=== PATIENT | male | born 1945 | race Caucasian/White ===

== ENCOUNTER → 2020-02-05 | Outpatient (CLI) | payer MEDICARE ==
--- NOTE | 2020-02-05 09:43 | CT ---
EXAMINATION TYPE: CT abdomen pelvis wo con DATE OF EXAM: 02/05/2020 COMPARISON: None HISTORY: 74 year-old male R31.0, gross hematuria CT DLP: 1000.7 mGycm. Automated exposure control for dose reduction was used. TECHNIQUE: Contiguous axial scanning of the abdomen and pelvis without IV contrast. Coronal and sagit pao reconstructions performed. FINDINGS: Median sternotomy wires. Heart upper limits of normal in size without pericardial effusion. Lung base s clear without pleural effusion. Scattered mild atherosclerotic calcifications lower thoracic aorta. Tiny hiatal hernia. Nonspecific 1.1 cm hypodensity peripheral right hepatic dome, too small for accurate CT characterizat ion, probable cyst. Cholecystectomy clips are present. Adrenal glands and pancreas show no gross abnormality by noncontrast CT. Multiple calcific granulomas within the spleen. The kidneys show lobulated contours. Underlying hypodense lesion in the left kidney measuring 2.1 cm at the midpole, 2.1 cm exophytic from the lateral upper pole, and 1.1 cm from the posterolateral marlon ical upper pole. The larger of these are suggestive of cyst. Smaller lesion is too small for accurate CT characterization but also likely represents a cyst. A focal lobulation along the anterior midpole of the right kidney measuring 2.6 cm, axial image 56, i s noted. Difficult to exclude a soft tissue mass versus lobulation in the renal contour. No nephrolithiasis or hydronephrosis. Moderate vascular calcifications throughout the abdominal aorta and common iliac arteries. There is f usiform infrarenal AAA measuring 4.8 cm for which appropriate follow-up is recommended. No dilated small bowel, free fluid, or free air. Normal appendix. Mild scattered stool. Scattered col onic diverticulosis, extensive within the sigmoid colon. No pericolonic inflammatory change. Mild circumferential bladder wall thickening. Bladder is partially collapsed but a 2.2 cm mural based soft tissue lesion is suggested along the right lateral bladder wall, axial image 127 and coronal im age 63. Sagittal image 59. Prostate gland measures 5.1 cm wide. No abnormal fluid collection in the p cathi. Prominent but not enlarged right inguinal lymph node measuring 1.2 cm short axis. Bones: Left L5 hemisacralization. Degenerated extra convex scoliosis of the lumbar spine. [facility] within the lower thoracic spine. IMPRESSION: 1. Suggestion of a 2.2 cm mural based mass along the right lateral bladder wall. Urothelial neoplasm should be excluded. 2. Hypodense lesions within the left kidney (probable cysts measuring up to 2.1 cm) and a focal roun ded contour of the right kidney that could represent a cortical lobulation or underlying 2.6 cm mass. Consider a contrast enhanced study to clarify. 3. No nephrolithiasis or hydronephrosis. 4. Tiny hiatal hernia, multiple old granulomas within the spleen, a 4.8 cm infrarenal AAA (for which appropriate follow-up is recommended), and generalized colonic diverticulosis greatest in the sigmoi d colon.
== END | disposition home or self-care (01) ==
LOC: RADCTMAIN 07:25
PROVIDERS: ATTEND Urology
DX: N28.89 Other specified disorders of kidney and ureter (principal); K44.9 Diaphragmatic hernia without obstruction or gangrene; I71.4 Abdominal aortic aneurysm, without rupture; K57.30 Diverticulosis of large intestine without perforation or abscess without bleeding; L92.9 Granulomatous disorder of the skin and subcutaneous tissue, unspecified; Z88.6 Allergy status to analgesic agent
CPT/HCPCS: 36415; 74176; 82565; 84520

== ENCOUNTER → 2020-02-16 | Outpatient (CLI) | payer MEDICARE ==
[2020-02-16 11:51] LABS: Basophils % (A) 0 %; Eosinophils # (A) 0.3 k/uL (0-0.7); Eosinophils % (A) 3 %; HCT 30.9 % (39.0-53.0); HGB 10.3 gm/dL (13.0-17.5); Lymphocytes # (A) 2.7 k/uL (1.0-4.8); Lymphocytes % (A) 32 %; MCH 32.8 pg (25.0-35.0); MCHC 33.4 g/dL (31.0-37.0); MCV 98.3 fL (80.0-100.0); Monocytes # (A) 0.5 k/uL (0-1.0); Monocytes % (A) 6 %; Neutrophils # (A) 4.7 k/uL (1.3-7.7); Neutrophils % (A) 56 %; Platelet Count 210 k/uL (150-450); RBC 3.14 m/uL (4.30-5.90); RDW 14.5 % (11.5-15.5); WBC 8.4 k/uL (3.8-10.6)
[2020-02-16 12:22] LABS: Calcium 8.7 mg/dL (8.4-10.2); Potassium 5.4 mmol/L (3.5-5.1)
== END | disposition home or self-care (01) ==
LOC: LABPAT 09:49
PROVIDERS: ATTEND Urology
DX: Z01.818 Encounter for other preprocedural examination (principal); C67.9 Malignant neoplasm of bladder, unspecified; E11.9 Type 2 diabetes mellitus without complications
CPT/HCPCS: 36415; 80048; 85025

== ENCOUNTER 2020-02-18 11:21 | Day surgery (SDC) | payer MEDICARE ==
[2020-02-16 14:37] VITALS: BMI 31.4
--- NOTE | 2020-02-17 21:14 | P.HPIHPCON ---
History of Present Illness H&P Date: 02/17/20 Mr Mak is a 74 yo male with hx of Gross hematuria, he underwent an office cystoscopy that showed two large bladder tumor. Discussed with him given the finding on CT I recommend he proceed with TURBT, discussed risk of bleeding, infection and bladder perforation. Discussed with him his CT was non-contrast and will need to do bilateral RPG to r/o upper tract pathology. He understood all risks and agreed to proceed with TURBT and bilateral RPG Consent for Procedure: I have explained the operation/procedure to the patient, including the risks, benefits, side effects, alternative therapies (including not receiving the proposed treatment or service), the likelihood of the patient achieving his/her goals, and potential recuperation problems for the procedure/sedation/analgesia, as well as any blood products, if indicated. I also explained to the patient the risks, benefits and side effects of the alternatives, as well as the risks related to not receiving the proposed procedure, care, treatment, or services. - Constitutional Constitutional: Denies chills, Denies fever - Gastrointestinal Gastrointestinal: Denies abdominal pain, Denies diarrhea, Denies nausea, Denies vomiting - Genitourinary (Male) Genitourinary: Reports hematuria Past Medical History Past Medical History: Coronary Artery Disease (CAD), Cancer, Diabetes Mellitus, GERD/Reflux, Hyperlipidemia, Hypertension, Myocardial Infarction (OR) Additional Past Medical History / Comment(s): OR X3, states has bladder tumor, hx of basal cell skin CA Last Myocardial Infarction Date:: 1992 History of Any Multi-Drug Resistant Organisms: None Reported Past Surgical History: Cholecystectomy, Coronary Bypass/CABG, Heart Catheterization, Orthopedic Surgery Additional Past Surgical History / Comment(s): cabg x3 1993, janel elbow nerve sx, rt rotator cuff, skin CA removed from back Past Anesthesia/Blood Transfusion Reactions: No Reported Reaction Smoking Status: Former smoker Medications and Allergies Home Medications Medication Instructions Recorded Confirmed Type Aspirin EC [Ecotrin Low Dose] 81 mg PO DAILY 02/16/20 02/16/20 History C,E,Zinc,Copper 11/Vugrl7r/Lut 1 each PO DAILY 02/16/20 02/16/20 History [Ocuvite Adult 50 Plus Softgel] Carvedilol [Coreg] 12.5 mg PO BID 02/16/20 02/16/20 History Cholecalciferol [Vitamin D3 (25 1,000 unit PO DAILY 02/16/20 02/16/20 History Mcg = 1000 Iu)] Cinnamon Bark [Cinnamon] 500 mg PO DAILY 02/16/20 02/16/20 History Ezetimibe [Zetia] 10 mg PO DAILY 02/16/20 02/16/20 History Folic Acid 1 mg PO DAILY 02/16/20 02/16/20 History Garlic 1 each PO DAILY 02/16/20 02/16/20 History Ginseng 100 mg PO DAILY 02/16/20 02/16/20 History Insulin Glargine [Lantus] 25 unit SQ HS 02/16/20 02/16/20 History Insulin Lispro Protamin/Lispro 30 unit SQ 1500 02/16/20 02/16/20 History [humaLOG Mix 75-25 Kwikpen] Insulin Lispro Protamin/Lispro 40 unit SQ QAM 02/16/20 02/16/20 History [humaLOG Mix 75-25 Kwikpen] Niacin [Niaspan] 1,000 mg PO DAILY 02/16/20 02/16/20 History Omeprazole 40 mg PO DAILY 02/16/20 02/16/20 History Pioglitazone [Actos] 45 mg PO DAILY 02/16/20 02/16/20 History Terazosin [Hytrin] 5 mg PO HS 02/16/20 02/16/20 History Ubidecarenone [Co Q-10] 100 mg PO DAILY 02/16/20 02/16/20 History Vitamin B Complex 1 each PO DAILY 02/16/20 02/16/20 History metFORMIN HCL [Glucophage] 1,000 mg PO BID 02/16/20 02/16/20 History Allergies Allergy/AdvReac Type Severity Reaction Status Date / Time No Known Allergies Allergy Verified 02/16/20 14:26 Surgical - Exam - General well developed, well nourished, no distress, no pain - ENT normal nares, normal mucosa - Respiratory normal expansion, normal respiratory effort - Psychiatric oriented to time, oriented to person, oriented to place Assessment and Plan Assessment: 74 yo male with hx of bladder tumor _ OR for TURBT and bilateral RPG
[~2020-02-18 11:21] MED LIST: ceFAZolin 3 GM in SODIUM CHLORIDE 0.9% 100 ML IVPB PRN
[2020-02-18] MEDS ORDERED: ONDANSETRON 4 MG/2 ML VIAL ONE (11:47)
[2020-02-18 12:06] LABS: Glucose,Whole Blood 106 mg/dL (75-99)
[2020-02-18] MEDS: LACTATED RINGERS 1,000 ML IV ONE (12:07)
[2020-02-18] MEDS ORDERED: ONDANSETRON 4 MG/2 ML VIAL IVP ONE (12:07)
[2020-02-18] MEDS ORDERED: LIDOCAINE 1% (10MG/ML) FOR IV START INTRADERMA ONE (12:07)
[2020-02-18] MEDS ORDERED: DEXAMETHASONE SOD PHOSPHATE 4 MG/ML 1 ML VIAL IV ONE (12:08)
[2020-02-18] MEDS ORDERED: PHENYLEPHRINE 10 MG/ML VIAL ONE (12:35)
[2020-02-18] MEDS ORDERED: PROPOFOL 10 MG/ML 20 ML VIAL IV ONE (12:35)
[2020-02-18] MEDS ORDERED: MIDAZOLAM 2 MG/2 ML VIAL ONE (12:35)
[2020-02-18] MEDS ORDERED: SUCCINYLCHOLINE CHLORIDE 100 MG/5 ML SYR IV ONE (12:35)
[2020-02-18] MEDS ORDERED: fentaNYL (PF) 50 MCG/ML 2 ML AMP ONE ×2 (12:35)
[2020-02-18] MEDS ORDERED: ROCURONIUM 10 MG/ML (10 ML VIAL) IV ONE (12:35)
[2020-02-18] MEDS ORDERED: NEOSTIGMINE 1 MG/ML 10 ML VIAL ONE (12:35)
[2020-02-18] MEDS ORDERED: GLYCOPYRROLATE 0.2 MG/ML 2 ML VIAL ONE (12:35)
[2020-02-18] MEDS ORDERED: IOPAMIDOL-370 50ML BTL MISCELLANE ONE (14:03)
[2020-02-18] MEDS ORDERED: LACTATED RINGERS 1,000 ML IV ONE (14:24)
--- NOTE | 2020-02-18 14:35 | P.OP ---
Date of Procedure: 02/18/20 Preoperative Diagnosis: Bladder tumor Postoperative Diagnosis: Bladder tumor Procedure(s) Performed: TURBT, bilateral retrograde pyelogram, right ureteroscopy, and ureteral balloon dilation Implants: none Anesthesia: YANDELA Surgeon: Gama Wetzel Estimated Blood Loss (ml): 10 Pathology: other (Right ureteral cytology, bladder tumor) Condition: stable Disposition: PACU Indications for Procedure: Mr Mak is a 74 yo male with hx of Gross hematuria, he underwent an office cystoscopy that showed two large bladder tumor. Discussed with him given the finding on CT I recommend he proceed with TURBT, discussed risk of bleeding, infection and bladder perforation. Discussed with him his CT was non-contrast and will need to do bilateral RPG to r/o upper tract pathology. He understood all risks and agreed to proceed with TURBT and bilateral R Operative Findings: Large bladder tumor along the right lateral wall, measured approximately 6 cm, additional 1 cm satellite tumor and anterior bladder wall, and retrograde pyelogram on the right side there was an area of narrowing in the mid ureter with proximal dilation Description of Procedure: Patient was brought to the operating room, general anesthesia was induced. He was prepped and draped so fashion a placement dorsal lithotomy position. A cystoscopy fitted with a 22-Ethiopian sheath was inserted per urethra, cystoscopy was performed which showed a large bladder tumor along the lateral wall on the right side, measured approximately 6 cm, an additional satellite lesion along the anterior bladder wall. No additional lesions were visualized. At this time the left ureter was intubated 6-Ethiopian open-ended catheter, retrograde pyelogram was performed which showed no filling defect or hydronephrosis. Attention was then carried to the right side which was intubated with a 6-Ethiopian open-ended catheter, retrograde pyelogram was performed which showed an area of narrowing along the mid ureter with proximal dilation, no additional filling defect or hydronephrosis was appreciated. Of note the UVJ was narrowed, thus using a ureteral balloon dilator the area was dilated under fluoroscopy. Next the balloon dilator was removed and a semirigid ureteroscope was inserted per urethra, the ureteroscope was advanced up the right ureter and the scope was advanced all the way up to the distal portion of the proximal ureter past the area of narrowing , ureteroscopy of the narrowed area demonstrated no abnormality, of note there was diffuse erythema along the distal and mid ureter, right ureteral cytology was obtained, to role out CIS At this time the ureteroscope was withdrawn, and resectoscope fitted with a 25-Ethiopian sheath was inserted per urethra, the tumor along the lateral wall was resected down down to muscle. The area of resection was thoroughly fulgurated. An additional satellite lesion was seen along the anterior bladder wall that was resected down to muscle and thoroughly fulgurated. Repeat cystoscopy showed no additional tumors or evidence of bleeding. at this time the resectoscope was withdrawn and a 20-Ethiopian catheter was inserted per urethra, with return of clear urine. The bladder was irrigated without difficulties. The tumor specimen was sent to pathology. The patient tolerated the procedure well was taken to PACU in stable condition
[2020-02-18 14:45] VITALS: RESP 16; TEMP 98
--- NOTE | 2020-02-18 14:47 | FL ---
EXAMINATION TYPE: FL urography retrograde DATE OF EXAM: 02/18/2020 FLUOROSCOPY Fluoroscopy time of 1 minute 8 seconds was used during bilateral cystoscopy . 2 image/s document/s t he procedure.
[2020-02-18] MEDS ORDERED: traMADol 50 MG TAB ONE (15:50)
[2020-02-18] MEDS ORDERED: traMADol 50 MG TAB PO ONE (15:51)
[2020-02-18 16:16] VITALS: BP 165/74; PULSE 57
== END 2020-02-18 16:40 | disposition home or self-care (01) ==
LOC: OR 11:21
PROVIDERS: ATTEND Urology
DX: C67.2 Malignant neoplasm of lateral wall of bladder (principal); C67.3 Malignant neoplasm of anterior wall of bladder; N13.5 Crossing vessel and stricture of ureter without hydronephrosis; E11.9 Type 2 diabetes mellitus without complications; I10 Essential (primary) hypertension; I25.2 Old myocardial infarction; Z88.8 Allergy status to other drugs, medicaments and biological substances; Z95.1 Presence of aortocoronary bypass graft
CPT/HCPCS: 88108; 88305; 88307; 74420; 52240; 52344; C1758 ×2; C1769; J2250; J1100; J2370; J2710; J0690; J2405; J3010; J0330; J2704; Q9967

== ENCOUNTER 2020-02-19 16:04 | Inpatient (IN) | payer MEDICARE ==
[2020-02-19] MEDS ORDERED: SODIUM CHLORIDE 0.9% 1,000 ML IV STA (17:03)
[2020-02-19] MEDS ORDERED: ONDANSETRON 4 MG/2 ML VIAL IVP STA (17:03)
[2020-02-19 17:45] LABS: INR 1.1 (<1.2); Partial Thromboplastin Time 22.4 sec (22.0-30.0); Prothrombin Time 11.3 sec (9.0-12.0)
[2020-02-19 17:53] LABS: Albumin 3.6 g/dL (3.5-5.0); Basophils % (A) 0 %; Calcium 7.9 mg/dL (8.4-10.2); Eosinophils # (A) 0.1 k/uL (0-0.7); Eosinophils % (A) 0 %; HCT 24.4 % (39.0-53.0); Lymphocytes # (A) 1.9 k/uL (1.0-4.8); Lymphocytes % (A) 11 %; MCH 31.8 pg (25.0-35.0); MCHC 32.5 g/dL (31.0-37.0); MCV 97.8 fL (80.0-100.0); Mean Platelet Volume 7.2; Monocytes # (A) 0.9 k/uL (0-1.0); Monocytes % (A) 6 %; Neutrophils # (A) 13.1 k/uL (1.3-7.7); Neutrophils % (A) 81 %; Platelet Count 233 k/uL (150-450); Potassium 5.6 mmol/L (3.5-5.1); RBC 2.49 m/uL (4.30-5.90); RDW 14.6 % (11.5-15.5); Total Bilirubin 0.3 mg/dL (0.2-1.3); Total Protein 6.2 g/dL (6.3-8.2); WBC 16.2 k/uL (3.8-10.6)
[2020-02-19 17:55] LABS: HGB 7.9 gm/dL (13.0-17.5)
--- NOTE | 2020-02-19 18:21 | XR ---
EXAMINATION TYPE: XR chest 2V DATE OF EXAM: 02/19/2020 COMPARISON: NONE HISTORY: Dizziness and vomiting. TECHNIQUE: Frontal and lateral views of the chest are obtained. FINDINGS: There is no focal air space opacity, pleural effusion, or pneumothorax seen. The cardiac silhouette size is enlarged. CABG noted. The osseous structures are intact. IMPRESSION: No acute cardiopulmonary process. Cardiomegaly.
--- NOTE | 2020-02-19 20:09 | CT ---
EXAMINATION TYPE: CT abdomen pelvis wo con DATE OF EXAM: 02/19/2020 COMPARISON: 02/04/2010. HISTORY: History of bladder cancer, renal failure, recent TURBT. CT DLP: 988.9 mGycm Automated exposure control for dose reduction was used. TECHNIQUE: Helical acquisition of images was performed from the lung bases through the pelvis. FINDINGS: LUNG BASES: No significant abnormality is appreciated. LIVER/GB: No significant abnormality is appreciated. PANCREAS: No significant abnormality is seen. SPLEEN: Stable scattered innumerable small benign splenic calcifications, in keeping with prior granu lomatous disease. ADRENALS: No significant abnormality is seen. KIDNEYS: Mild right hydronephrosis without obstructing calculus seen. There is a 3 mm nonobstructing right renal calculus. No left hydronephrosis or nephrolithiasis. Multiple simple appearing left renal cyst, measuring up to 1.7 cm. FREE AIR: No free air is visualized RETROPERITONEAL ADENOPATHY: None visualized REPRODUCTIVE ORGANS: No significant abnormality is seen URINARY BLADDER: There is moderate hyperattenuating fluid within the urinary bladder resulting in mi ld distention. Perez catheter is in place. There is small amount of urinary bladder and. PELVIC ADENOPATHY: None visualized. OSSEOUS STRUCTURES: No significant abnormality is seen. BOWEL: No significant abnormality is seen. OTHER: Moderate to advanced atherosclerotic disease with stable 4.8 cm abdominal aortic aneurysm. IMPRESSION: INTERVAL MODERATE AMOUNT OF HYPERATTENUATING FLUID WITHIN THE URINARY BLADDER, CONSISTENT WITH HEMATO MA IN SETTING OF REPORTED RECENT URINARY BLADDER SURGERY. MODERATE RIGHT HYDRONEPHROSIS. CHRONIC FINDINGS ABOVE.
--- NOTE | 2020-02-19 21:04 | ED ---
General Adult HPI - General Chief complaint: Nausea/Vomiting/Diarrhea Stated complaint: Dehydration, Vomiting Time Seen by Provider: 02/19/20 16:10 Source: patient Mode of arrival: wheelchair Limitations: no limitations - History of Present Illness Initial comments: Patient is a 74-year-old male with past medical history of possible bladder cancer who presents emergency Department with reported nausea, vomiting. Patient had a cystoscopy with Dr. Wetzel yesterday to hematuria. It was found that the patient had 2 large bladder masses which were biopsied. Patient was sent home with a Dutton catheter. Reports that he had some blood in his Dutton last night. This morning he began developing suprapubic abdominal pain. He has been unable to eat and drink since before his surgery. Anything he eats he vomits back up. Denies bloody emesis. No fevers or chills. Denies changes in his bowel habits. He did see Dr. Wetzel in office today and his Dutton was flushed. Dr. Lincoln Jensen requested that if he did not feel better that he go back into the emergency room. Patient denies any abdominal pain this time. No fevers or chills. Denies any sick contacts or similar symptoms. No other alleviating, precipitating or modifying factors - Related Data Home Medications Medication Instructions Recorded Confirmed C,E,Zinc,Copper 11/Oujaa3k/Lut 1 cap PO DAILY 02/16/20 02/19/20 [Ocuvite Adult 50 Plus Softgel] Carvedilol [Coreg] 12.5 mg PO BID 02/16/20 02/19/20 Cholecalciferol [Vitamin D3 (25 1,000 unit PO DAILY 02/16/20 02/19/20 Mcg = 1000 Iu)] Cinnamon Bark [Cinnamon] 500 mg PO DAILY 02/16/20 02/19/20 Ezetimibe [Zetia] 10 mg PO DAILY 02/16/20 02/19/20 Garlic 1 tab PO DAILY 02/16/20 02/19/20 Ginseng 100 mg PO DAILY 02/16/20 02/19/20 Omeprazole 40 mg PO DAILY 02/16/20 02/19/20 Pioglitazone [Actos] 45 mg PO DAILY 02/16/20 02/19/20 Terazosin [Hytrin] 5 mg PO HS 02/16/20 02/19/20 Ubidecarenone [Co Q-10] 100 mg PO DAILY 02/16/20 02/19/20 Vitamin B Complex 1 tab PO DAILY 02/16/20 02/19/20 Aspirin 325 mg PO DIRECTED 02/19/20 02/19/20 Carboxymethylcellulose Sodium 1 drop BOTH EYES QID PRN 02/19/20 02/19/20 [Refresh Tears] Folic Acid 0.8 mg PO BID 02/19/20 02/19/20 Niacin [Slo-Niacin] 1,000 mg PO BID 02/19/20 02/19/20 Nitroglycerin Sl Tabs [Nitrostat] 0.4 mg SUBLINGUAL Q5M PRN 02/19/20 02/19/20 Simvastatin [Zocor] 40 mg PO HS 02/19/20 02/19/20 ramipriL [Ramipril] 10 mg PO BID 02/19/20 02/19/20 Previous Rx's Medication Instructions Recorded Cephalexin [Keflex] 500 mg PO Q8HR #15 cap 02/18/20 traMADol HCL [Ultram] 50 mg PO Q6HR PRN 3 Days #6 tab 02/18/20 MDD 8 Albuterol Inhaler [Ventolin Hfa 2 puff INHALATION RT-QID PRN #1 02/22/20 Inhaler] inhaler Fluticasone/Salmeterol [Advair 1 inhalation PO BID #1 inhaler 02/22/20 250-50 Diskus] Insulin Glargine [Lantus] 30 unit SQ HS #0 02/22/20 Tiotropium [place] [Spiriva] 1 cap INHALATION DAILY #1 device 02/22/20 Allergies Allergy/AdvReac Type Severity Reaction Status Date / Time No Known Allergies Allergy Verified 02/19/20 18:41 Review of Systems ROS Statement: Those systems with pertinent positive or pertinent negative responses have been documented in the HPI. ROS Other: All systems not noted in ROS Statement are negative. Past Medical History Past Medical History: Cancer Additional Past Medical History / Comment(s): Bladder CA Additional Past Surgical History / Comment(s): TURPT Smoking Status: Former smoker Past Alcohol Use History: Occasional Past Drug Use History: None Reported General Exam Limitations: no limitations General appearance: alert, in no apparent distress Head exam: Present: atraumatic, normocephalic, normal inspection Eye exam: Present: normal appearance, PERRL, EOMI. Absent: scleral icterus, conjunctival injection, periorbital swelling ENT exam: Present: normal exam, mucous membranes moist Neck exam: Present: normal inspection. Absent: tenderness, meningismus, lymphadenopathy Respiratory exam: Present: normal lung sounds bilaterally. Absent: respiratory distress, wheezes, rales, rhonchi, stridor Cardiovascular Exam: Present: regular rate, normal rhythm, normal heart sounds. Absent: systolic murmur, diastolic murmur, rubs, gallop, clicks GI/Abdominal exam: Present: soft, normal bowel sounds. Absent: distended, tenderness, guarding, rebound, rigid exam: Present: normal inspection, other (dutton bag draining dark blood) Extremities exam: Present: normal inspection, full ROM, normal capillary refill. Absent: tenderness, pedal edema, joint swelling, calf tenderness Back exam: Present: normal inspection Neurological exam: Present: alert, oriented X3, CN II-XII intact Psychiatric exam: Present: normal affect, normal mood Skin exam: Present: warm, dry, intact, normal color. Absent: rash Course Vital Signs 02/19/20 02/19/20 02/19/20 16:10 18:41 19:48 Temperature 97.8 F 97.8 F Pulse Rate 82 65 70 Respiratory 81 H 20 18 Rate Blood Pressure 121/71 138/80 149/59 O2 Sat by Pulse 97 96 96 Oximetry 02/19/20 02/19/20 20:52 22:33 Temperature 98.9 F Pulse Rate 80 95 Respiratory 19 19 Rate Blood Pressure 121/77 139/60 O2 Sat by Pulse 94 L 94 L Oximetry Medical Decision Making - Medical Decision Making Upon arrival patient was placed into room 5. A thorough history and physical exam was performed. Peripheral IV is established. Laboratory studies were conducted. Bladder scan does demonstrate minimal fluid inside the bladder. Dutton is actively draining at this time gross blood. Laboratory studies revealing demonstrated a hemoglobin 7.9. This is a change from the patient's previous value of 10.3 on 11. Creatinine is also 3.4. Baseline of 1.4. I did send the patient over for a CT of his abdomen and pelvis because of this new onset kidney failure with recent surgery. It does demonstrate hematoma within the bladder and right hydronephrosis. Patient fully continues to drain appropriately. I called and discussed the case with Dr. Wetzel who agreed to consult on the patient. Spoke with Dr. Cervantes who agreed to admit the patient. She will be made nothing by mouth at midnight. The patient is type and screen and we will repeat a hemoglobin tonight. Patient remained in stable condition and was transported to the floor - Lab Data Result diagrams: 02/22/20 05:52 02/22/20 05:52 Lab Results 02/19/20 02/19/20 02/19/20 Range/Units 17:22 17:22 17:22 WBC 16.2 H (3.8-10.6) k/uL RBC 2.49 L (4.30-5.90) m/uL Hgb 7.9 L D (13.0-17.5) gm/dL Hct 24.4 L (39.0-53.0) % MCV 97.8 (80.0-100.0) fL MCH 31.8 (25.0-35.0) pg MCHC 32.5 (31.0-37.0) g/dL RDW 14.6 (11.5-15.5) % Plt Count 233 (150-450) k/uL MPV 7.2 Neutrophils % 81 % Lymphocytes % 11 % Monocytes % 6 % Eosinophils % 0 % Basophils % 0 % Neutrophils # 13.1 H (1.3-7.7) k/uL Lymphocytes # 1.9 (1.0-4.8) k/uL Monocytes # 0.9 (0-1.0) k/uL Eosinophils # 0.1 (0-0.7) k/uL Basophils # 0.0 (0-0.2) k/uL PT 11.3 (9.0-12.0) sec INR 1.1 (<1.2) APTT 22.4 (22.0-30.0) sec Sodium 134 L (137-145) mmol/L Potassium 5.6 H (3.5-5.1) mmol/L Chloride 104 (98-107) mmol/L Carbon Dioxide 20 L (22-30) mmol/L Anion Gap 10 mmol/L BUN 46 H (9-20) mg/dL Creatinine 3.43 H (0.66-1.25) mg/dL Est GFR (CKD-EPI)AfAm 19 (>60 ml/min/1.73 sqM) Est GFR (CKD-EPI)NonAf 17 (>60 ml/min/1.73 sqM) Glucose 158 H (74-99) mg/dL Plasma Lactic Acid [place] (0.7-2.0) mmol/L Calcium 7.9 L (8.4-10.2) mg/dL Total Bilirubin 0.3 (0.2-1.3) mg/dL AST 45 (17-59) U/L ALT 30 (4-49) U/L Alkaline Phosphatase 40 (38-126) U/L Total Protein 6.2 L (6.3-8.2) g/dL Albumin 3.6 (3.5-5.0) g/dL Lipase 98 (23-300) U/L Coronavirus (PCR) (Not Detectd) Blood Type Blood Type Confirm Blood Type Recheck Bld Type Recheck Status Antibody Screen Crossmatch Spec Expiration Date 02/19/20 02/19/20 02/19/20 Range/Units 17:22 17:22 17:24 WBC (3.8-10.6) k/uL RBC (4.30-5.90) m/uL Hgb (13.0-17.5) gm/dL Hct (39.0-53.0) % MCV (80.0-100.0) fL MCH (25.0-35.0) pg MCHC (31.0-37.0) g/dL RDW (11.5-15.5) % Plt Count (150-450) k/uL MPV Neutrophils % % Lymphocytes % % Monocytes % % Eosinophils % % Basophils % % Neutrophils # (1.3-7.7) k/uL Lymphocytes # (1.0-4.8) k/uL Monocytes # (0-1.0) k/uL Eosinophils # (0-0.7) k/uL Basophils # (0-0.2) k/uL PT (9.0-12.0) sec INR (<1.2) APTT (22.0-30.0) sec Sodium (137-145) mmol/L Potassium (3.5-5.1) mmol/L Chloride (98-107) mmol/L Carbon Dioxide (22-30) mmol/L Anion Gap mmol/L BUN (9-20) mg/dL Creatinine (0.66-1.25) mg/dL Est GFR (CKD-EPI)AfAm (>60 ml/min/1.73 sqM) Est GFR (CKD-EPI)NonAf (>60 ml/min/1.73 sqM) Glucose (74-99) mg/dL Plasma Lactic Acid Lawson 1.2 (0.7-2.0) mmol/L Calcium (8.4-10.2) mg/dL Total Bilirubin (0.2-1.3) mg/dL AST (17-59) U/L ALT (4-49) U/L Alkaline Phosphatase (38-126) U/L Total Protein (6.3-8.2) g/dL Albumin (3.5-5.0) g/dL Lipase (23-300) U/L Coronavirus (PCR) Not Detected (Not Detectd) Blood Type Blood Type Confirm A Positive Blood Type Recheck Bld Type Recheck Status Antibody Screen Crossmatch Spec Expiration Date 02/19/20 Range/Units 20:32 WBC (3.8-10.6) k/uL RBC (4.30-5.90) m/uL Hgb (13.0-17.5) gm/dL Hct (39.0-53.0) % MCV (80.0-100.0) fL MCH (25.0-35.0) pg MCHC (31.0-37.0) g/dL RDW (11.5-15.5) % Plt Count (150-450) k/uL MPV Neutrophils % % Lymphocytes % % Monocytes % % Eosinophils % % Basophils % % Neutrophils # (1.3-7.7) k/uL Lymphocytes # (1.0-4.8) k/uL Monocytes # (0-1.0) k/uL Eosinophils # (0-0.7) k/uL Basophils # (0-0.2) k/uL PT (9.0-12.0) sec INR (<1.2) APTT (22.0-30.0) sec Sodium (137-145) mmol/L Potassium (3.5-5.1) mmol/L Chloride (98-107) mmol/L Carbon Dioxide (22-30) mmol/L Anion Gap mmol/L BUN (9-20) mg/dL Creatinine (0.66-1.25) mg/dL Est GFR (CKD-EPI)AfAm (>60 ml/min/1.73 sqM) Est GFR (CKD-EPI)NonAf (>60 ml/min/1.73 sqM) Glucose (74-99) mg/dL Plasma Lactic Acid Lawson (0.7-2.0) mmol/L Calcium (8.4-10.2) mg/dL Total Bilirubin (0.2-1.3) mg/dL AST (17-59) U/L ALT (4-49) U/L Alkaline Phosphatase (38-126) U/L Total Protein (6.3-8.2) g/dL Albumin (3.5-5.0) g/dL Lipase (23-300) U/L Coronavirus (PCR) (Not Detectd) Blood Type A Positive Blood Type Confirm Blood Type Recheck No Previous Record Bld Type Recheck Status CABO Indicated Antibody Screen NEGATIVE Crossmatch See Detail Spec Expiration Date 02/22/20202331 Disposition Clinical Impression: Dehydration, NGOZI (acute kidney injury), Mass of urinary bladder, S/P cystoscopy, Blood loss anemia Disposition: ADMITTED IP TO THIS [facility] Condition: Good Is patient prescribed a controlled substance at d/c from ED?: No Decision to Admit Reason: Admit from EC Decision Date: 02/19/20 Decision Time: 21:10
[2020-02-19] MEDS ORDERED: NALOXONE 0.4 MG/ML 1 ML VIAL IV PRN (21:11)
[2020-02-19] MEDS ORDERED: NON FORMULARY DRUG (Carboxymethylcellulose Sodium [Refresh Tears] 15 ML Drops) BOTH EYES PRN (21:17)
[2020-02-19] MEDS: SODIUM CHLORIDE 0.9% 1,000 ML IV SCH (21:55)
[2020-02-20] MEDS: ACETAMINOPHEN TAB 325 MG TAB PO PRN (01:14)
[2020-02-20] MEDS: CEPHALEXIN 250 MG CAP PO SCH ×2 (01:23→09:42)
[2020-02-20] MEDS: SODIUM CHLORIDE 0.9% 1,000 ML IV SCH ×3 (05:22→21:12)
[2020-02-20 07:55] LABS: Basophils % (A) 0 %; Eosinophils # (A) 0.2 k/uL (0-0.7); Eosinophils % (A) 1 %; HCT 22.3 % (39.0-53.0); HGB 7.4 gm/dL (13.0-17.5); Lymphocytes # (A) 2.1 k/uL (1.0-4.8); Lymphocytes % (A) 16 %; MCH 32.9 pg (25.0-35.0); MCHC 33.2 g/dL (31.0-37.0); MCV 98.9 fL (80.0-100.0); Macrocytosis Slight; Monocytes # (A) 0.7 k/uL (0-1.0); Monocytes % (A) 5 %; Neutrophils # (A) 10.5 k/uL (1.3-7.7); Neutrophils % (A) 77 %; Platelet Count 191 k/uL (150-450); RBC 2.25 m/uL (4.30-5.90); RDW 14.4 % (11.5-15.5); WBC 13.7 k/uL (3.8-10.6)
[2020-02-20 08:05] LABS: Glucose,Whole Blood 161 mg/dL (75-99)
[2020-02-20 08:24] LABS: Calcium 7.4 mg/dL (8.4-10.2); Potassium 4.9 mmol/L (3.5-5.1)
[2020-02-20] MEDS ORDERED: NON FORMULARY DRUG (Garlic [Garlic] 1 EACH Tablet) PO SCH (09:00)
[2020-02-20] MEDS ORDERED: NON FORMULARY DRUG (Cinnamon Bark [Cinnamon] 500 MG Capsule) PO SCH (09:00)
[2020-02-20] MEDS ORDERED: NON FORMULARY DRUG (Ubidecarenone [Co Q-10] 100 MG Capsule) PO SCH (09:00)
[2020-02-20] MEDS ORDERED: NON FORMULARY DRUG (Folic Acid [Folic Acid] 0.8 MG Capsule) PO SCH (09:00)
[2020-02-20] MEDS ORDERED: NON FORMULARY DRUG (Vitamin B Complex [Vitamin B Complex] 1 EACH Capsule) PO SCH (09:00)
[2020-02-20] MEDS ORDERED: NIACIN 500 MG PO SCH (09:00)
[2020-02-20] MEDS ORDERED: GINSENG 100 MG PO SCH (09:00)
[2020-02-20 09:18] LABS: Basophils % (A) 0 %; Eosinophils # (A) 0.2 k/uL (0-0.7); Eosinophils % (A) 2 %; HCT 22.2 % (39.0-53.0); HGB 7.2 gm/dL (13.0-17.5); Lymphocytes # (A) 1.7 k/uL (1.0-4.8); Lymphocytes % (A) 13 %; MCH 32.6 pg (25.0-35.0); MCHC 32.6 g/dL (31.0-37.0); MCV 100.1 fL (80.0-100.0); Macrocytosis Slight; Mean Platelet Volume 8.2; Monocytes # (A) 0.7 k/uL (0-1.0); Monocytes % (A) 5 %; Neutrophils # (A) 10.1 k/uL (1.3-7.7); Neutrophils % (A) 78 %; Platelet Count 188 k/uL (150-450); RBC 2.22 m/uL (4.30-5.90); RDW 14.7 % (11.5-15.5); WBC 12.9 k/uL (3.8-10.6)
[2020-02-20] MEDS: carvediloL 12.5 MG TAB PO SCH ×2 (09:35→18:24)
[2020-02-20] MEDS: CHOLECALCIFEROL 1,000 UNIT TAB PO SCH (09:36)
[2020-02-20] MEDS: PANTOPRAZOLE 40 MG TABLET PO SCH (09:36)
[2020-02-20] MEDS: lisinopriL 20 MG TAB PO SCH ×2 (09:36→21:11)
[2020-02-20] MEDS: EZETIMIBE 10 MG TAB PO SCH (09:36)
[2020-02-20] MEDS: OXYBUTYNIN CHLORIDE 5 MG TAB PO SCH ×2 (09:43→21:11)
[2020-02-20 10:53] LABS: Glucose,Whole Blood 153 mg/dL (75-99)
--- NOTE | 2020-02-20 16:31 | P.HPIM ---
History of Present Illness 74-year-old male with past medical history of possible bladder cancer who presents emergency Department with reported nausea, vomiting. Patient had a cystoscopy with Dr. Wetzel 2 days ago. It was found that the patient had 2 large bladder masses which were biopsied. Patient was sent home with a Perez catheter. Reports that he had some blood in his Perez last night. This morning he began developing suprapubic abdominal pain. He has been unable to eat and drink since before his surgery. Anything he eats he vomits back up. Denies bloody emesis. No fevers or chills. Denies changes in his bowel habits. He did see Dr. Wetzel in office today and his Perez was flushed. Patient appeared to have urinary retention because of which he called the urologist who asked him to come to the hospital patient denied any fever chills patient had a CT of the abdomen showed right-sided hydronephrosis. Patient's Perez catheter was flushed after which started working patient creatinine although went up to around 2.7 baseline appears to be around 1.49.. Patient denies any abdominal pain this time. No fevers or chills. Denies any sick contacts or similar symptoms. Review of Systems REVIEW OF SYSTEMS: CONSTITUTIONAL: No fever, no malaise, no fatigue. HEENT: No recent visual problems or hearing problems. Denied any sore throat. CARDIOVASCULAR: No chest pain, orthopnea, PND, no palpitations, no syncope. PULMONARY: No shortness of breath, no cough, no hemoptysis. GASTROINTESTINAL: No diarrhea, no nausea, no vomiting, no abdominal pain. NEUROLOGICAL: No headaches, no weakness, no numbness. HEMATOLOGICAL: Denies any bleeding or petechiae. GENITOURINARY: As mentioned in HPI MUSCULOSKELETAL/RHEUMATOLOGICAL: Denies any joint pain, swelling, or any muscle pain. ENDOCRINE: Denies any polyuria or polydipsia. The rest of the 14-point review of systems is negative. Past Medical History Past Medical History: Cancer Additional Past Medical History / Comment(s): Bladder CA History of Any Multi-Drug Resistant Organisms: None Reported Additional Past Surgical History / Comment(s): TURPT Smoking Status: Former smoker Past Alcohol Use History: Occasional Past Drug Use History: None Reported Medications and Allergies Home Medications Medication Instructions Recorded Confirmed Type C,E,Zinc,Copper 11/Dfcbf7d/Lut 1 cap PO DAILY 02/16/20 02/19/20 History [Ocuvite Adult 50 Plus Softgel] Carvedilol [Coreg] 12.5 mg PO BID 02/16/20 02/19/20 History Cholecalciferol [Vitamin D3 (25 1,000 unit PO DAILY 02/16/20 02/19/20 History Mcg = 1000 Iu)] Cinnamon Bark [Cinnamon] 500 mg PO DAILY 02/16/20 02/19/20 History Ezetimibe [Zetia] 10 mg PO DAILY 02/16/20 02/19/20 History Garlic 1 tab PO DAILY 02/16/20 02/19/20 History Ginseng 100 mg PO DAILY 02/16/20 02/19/20 History Insulin Glargine [Lantus] 25 unit SQ HS 02/16/20 02/19/20 History Omeprazole 40 mg PO DAILY 02/16/20 02/19/20 History Pioglitazone [Actos] 45 mg PO DAILY 02/16/20 02/19/20 History Terazosin [Hytrin] 5 mg PO HS 02/16/20 02/19/20 History Ubidecarenone [Co Q-10] 100 mg PO DAILY 02/16/20 02/19/20 History Vitamin B Complex 1 tab PO DAILY 02/16/20 02/19/20 History metFORMIN HCL [Glucophage] 1,000 mg PO BID 02/16/20 02/19/20 History Cephalexin [Keflex] 500 mg PO Q8HR #15 cap 02/18/20 02/19/20 Rx traMADol HCL [Ultram] 50 mg PO Q6HR PRN 3 Days #6 tab 02/18/20 02/19/20 Rx MDD 8 Aspirin 325 mg PO DIRECTED 02/19/20 02/19/20 History Carboxymethylcellulose Sodium 1 drop BOTH EYES QID PRN 02/19/20 02/19/20 History [Refresh Tears] Folic Acid 0.8 mg PO BID 02/19/20 02/19/20 History Insulin NPL/Insulin Lispro 30 unit SQ DAILY@1800 02/19/20 02/19/20 History [humaLOG MIX 75-25 VIAL] Insulin NPL/Insulin Lispro 40 unit SQ QAM 02/19/20 02/19/20 History [humaLOG MIX 75-25 VIAL] Niacin [Slo-Niacin] 1,000 mg PO BID 02/19/20 02/19/20 History Nitroglycerin Sl Tabs [Nitrostat] 0.4 mg SUBLINGUAL Q5M PRN 02/19/20 02/19/20 History Simvastatin [Zocor] 40 mg PO HS 02/19/20 02/19/20 History ramipriL [Ramipril] 10 mg PO BID 02/19/20 02/19/20 History Allergies Allergy/AdvReac Type Severity Reaction Status Date / Time No Known Allergies Allergy Verified 02/19/20 18:41 Physical Exam Vitals: Vital Signs Temp Pulse Pulse Resp BP BP Pulse Ox 02/20/20 11:00 97.7 F 97 16 123/69 97 02/20/20 05:00 98.4 F 92 20 121/63 96 02/19/20 23:00 98.3 F 82 20 164/75 95 02/19/20 22:33 95 19 139/60 94 L 02/19/20 20:52 98.9 F 80 19 121/77 94 L 02/19/20 19:48 70 18 149/59 96 02/19/20 18:41 97.8 F 65 20 138/80 96 Intake and Output 02/20/20 02/20/20 02/20/20 06:59 14:59 22:59 Intake Total 1040 Output Total 550 900 Balance 490 -900 Intake: Intake, IV Titration 1040 Amount Sodium Chloride 0.9% 1, 1040 000 ml @ 130 mls/hr IV . Q7H42M [facility] Rx#:[id number] Output: Urine 550 900 Straight 550 Other: Voiding Method Indwelling Catheter Weight 93.894 kg PHYSICAL EXAMINATION: GENERAL: The patient is alert and oriented x3, not in any acute distress. Well developed, well nourished. HEENT: Pupils are round and equally reacting to light. EOMI. No scleral icterus. No conjunctival pallor. Normocephalic, atraumatic. No pharyngeal erythema. No thyromegaly. CARDIOVASCULAR: S1 and S2 present. No murmurs, rubs, or gallops. PULMONARY: Chest is clear to auscultation, no wheezing or crackles. ABDOMEN: Soft, nontender, nondistended, normoactive bowel sounds. No palpable organomegaly. The catheter is draining but urine is bit bloody. MUSCULOSKELETAL: No joint swelling or deformity. EXTREMITIES: No cyanosis, clubbing, or pedal edema. NEUROLOGICAL: Gross neurological examination did not reveal any focal deficits. SKIN: No rashes. Results CBC & Chem 7: 02/20/20 08:58 02/20/20 07:00 Labs: Abnormal Lab Results - Last 24 Hours (Table) 02/19/20 02/19/20 02/20/20 Range/Units 17:22 17:22 07:00 WBC 16.2 H 13.7 H (3.8-10.6) k/uL RBC 2.49 L 2.25 L (4.30-5.90) m/uL Hgb 7.9 L D 7.4 L (13.0-17.5) gm/dL Hct 24.4 L 22.3 L (39.0-53.0) % MCV (80.0-100.0) fL Neutrophils # 13.1 H 10.5 H (1.3-7.7) k/uL Sodium 134 L (137-145) mmol/L Potassium 5.6 H (3.5-5.1) mmol/L Carbon Dioxide 20 L (22-30) mmol/L BUN 46 H (9-20) mg/dL Creatinine 3.43 H (0.66-1.25) mg/dL Glucose 158 H (74-99) mg/dL POC Glucose (mg/dL) (75-99) mg/dL Calcium 7.9 L (8.4-10.2) mg/dL Total Protein 6.2 L (6.3-8.2) g/dL 02/20/20 02/20/20 02/20/20 Range/Units 07:00 08:04 08:58 WBC 12.9 H (3.8-10.6) k/uL RBC 2.22 L (4.30-5.90) m/uL Hgb 7.2 L (13.0-17.5) gm/dL Hct 22.2 L (39.0-53.0) % MCV 100.1 H (80.0-100.0) fL Neutrophils # 10.1 H (1.3-7.7) k/uL Sodium 134 L (137-145) mmol/L Potassium (3.5-5.1) mmol/L Carbon Dioxide 19 L (22-30) mmol/L BUN 47 H (9-20) mg/dL Creatinine 3.30 H (0.66-1.25) mg/dL Glucose 131 H (74-99) mg/dL POC Glucose (mg/dL) 161 H (75-99) mg/dL Calcium 7.4 L (8.4-10.2) mg/dL Total Protein (6.3-8.2) g/dL 02/20/20 Range/Units 10:50 WBC (3.8-10.6) k/uL RBC (4.30-5.90) m/uL Hgb (13.0-17.5) gm/dL Hct (39.0-53.0) % MCV (80.0-100.0) fL Neutrophils # (1.3-7.7) k/uL Sodium (137-145) mmol/L Potassium (3.5-5.1) mmol/L Carbon Dioxide (22-30) mmol/L BUN (9-20) mg/dL Creatinine (0.66-1.25) mg/dL Glucose (74-99) mg/dL POC Glucose (mg/dL) 153 H (75-99) mg/dL Calcium (8.4-10.2) mg/dL Total Protein (6.3-8.2) g/dL Thrombosis Risk Factor Assmnt - Choose All That Apply Each Factor Represents 1 point: Obesity (BMI >25) Each Risk Factor Represents 3 Points: Age 75 years or older Other congenital or acquired thrombophilia - If yes, enter type in comment: No Thrombosis Risk Factor Assessment Total Risk Factor Score: 4 Thrombosis Risk Factor Assessment Level: Moderate Risk Assessment and Plan Plan: -Acute renal failure: Secondary to obstructive uropathy and hydronephrosis from a obstruction of the Perez catheter which is presently working at this time we'll repeat basic metabolic profile tomorrow -Hyperkalemia secondary to obstructive uropathy -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 Patient has leukocytosis reactive but patient is already on empiric Wernicke's as outpatient and patient is on Rocephin here. -Hyponatremia: Secondary to renal failure -Metabolic acidosis secondary to renal failure and hyperkalemia -Hypertension -Hyperlipidemia Because of hematuria patient will not be started on any DVT prophylaxis early ambulation will be recommended
[2020-02-20 17:28] LABS: Glucose,Whole Blood 251 mg/dL (75-99)
[2020-02-20] MEDS: INSULIN ASPART (NovoLOG) 100 UNIT/ML VIAL SQ SCH ×2 (18:24→21:12)
--- NOTE | 2020-02-20 18:59 | P.GSCN ---
History of Present Illness Consult date: 02/20/20 Reason for Consult: Gross hematuria History of present illness: This is 74-year-old male with history of bladder tumor. He underwent a TURBT a nd right-sided ureterscopy on February 17. No complications during the case. He was discharged home. He subsequently presented to clinic on February 18 with abdominal pain, he was noted to be in clot retention, and approximate 700 mL of hematuric urine was drained out. His catheter was also exchange in clinic for a 22-[place] hematuria catheter. At that time he was also complaining of dizziness , and he was sent to the ED for evaluation. In the ER he underwent a CT scan that demonstrated evidence of blood within the bladder, and right-sided hydronephrosis. Additionally he had worsening of kidney function and a drop of his hemoglobin from him 10.3-7.9. Today on evaluation his urine is light red. The catheter is draining without any clots. Catheter irrigated without difficulties. He denies any abdominal pain, indicates his dizziness has resolved. He has been complaining of bladder spasms secondary to his catheter Review of Systems - Constitutional Denies fever, Denies weight loss - Cardiovascular Denies chest pain, Denies shortness of breath - Respiratory Denies cough, Denies 7 - Gastrointestinal Reports as per HPI - Genitourinary Reports hematuria, Denies flank pain - Neurological Denies headaches, Denies syncope Past Medical History Past Medical History: Cancer Additional Past Medical History / Comment(s): Bladder CA History of Any Multi-Drug Resistant Organisms: None Reported Additional Past Surgical History / Comment(s): TURPT Smoking Status: Former smoker Past Alcohol Use History: Occasional Past Drug Use History: None Reported Medications and Allergies Home Medications Medication Instructions Recorded Confirmed Type C,E,Zinc,Copper 11/Vwops3u/Lut 1 cap PO DAILY 02/16/20 02/19/20 History [Ocuvite Adult 50 Plus Softgel] Carvedilol [Coreg] 12.5 mg PO BID 02/16/20 02/19/20 History Cholecalciferol [Vitamin D3 (25 1,000 unit PO DAILY 02/16/20 02/19/20 History Mcg = 1000 Iu)] Cinnamon Bark [Cinnamon] 500 mg PO DAILY 02/16/20 02/19/20 History Ezetimibe [Zetia] 10 mg PO DAILY 02/16/20 02/19/20 History Garlic 1 tab PO DAILY 02/16/20 02/19/20 History Ginseng 100 mg PO DAILY 02/16/20 02/19/20 History Insulin Glargine [Lantus] 25 unit SQ HS 02/16/20 02/19/20 History Omeprazole 40 mg PO DAILY 02/16/20 02/19/20 History Pioglitazone [Actos] 45 mg PO DAILY 02/16/20 02/19/20 History Terazosin [Hytrin] 5 mg PO HS 02/16/20 02/19/20 History Ubidecarenone [Co Q-10] 100 mg PO DAILY 02/16/20 02/19/20 History Vitamin B Complex 1 tab PO DAILY 02/16/20 02/19/20 History metFORMIN HCL [Glucophage] 1,000 mg PO BID 02/16/20 02/19/20 History Cephalexin [Keflex] 500 mg PO Q8HR #15 cap 02/18/20 02/19/20 Rx traMADol HCL [Ultram] 50 mg PO Q6HR PRN 3 Days #6 tab 02/18/20 02/19/20 Rx MDD 8 Aspirin 325 mg PO DIRECTED 02/19/20 02/19/20 History Carboxymethylcellulose Sodium 1 drop BOTH EYES QID PRN 02/19/20 02/19/20 History [Refresh Tears] Folic Acid 0.8 mg PO BID 02/19/20 02/19/20 History Insulin NPL/Insulin Lispro 30 unit SQ DAILY@1800 02/19/20 02/19/20 History [humaLOG MIX 75-25 VIAL] Insulin NPL/Insulin Lispro 40 unit SQ QAM 02/19/20 02/19/20 History [humaLOG MIX 75-25 VIAL] Niacin [Slo-Niacin] 1,000 mg PO BID 02/19/20 02/19/20 History Nitroglycerin Sl Tabs [Nitrostat] 0.4 mg SUBLINGUAL Q5M PRN 02/19/20 02/19/20 History Simvastatin [Zocor] 40 mg PO HS 02/19/20 02/19/20 History ramipriL [Ramipril] 10 mg PO BID 02/19/20 02/19/20 History Allergies Allergy/AdvReac Type Severity Reaction Status Date / Time No Known Allergies Allergy Verified 02/19/20 18:41 Surgical - Exam Vital Signs Temp Pulse Resp BP Pulse Ox 97.8 F 82 81 H 121/71 97 02/19/20 16:10 02/19/20 16:10 02/19/20 16:10 02/19/20 16:10 02/19/20 16:10 - General well developed, well nourished, no distress - Eyes PERRL, normal ocular movement - Respiratory normal expansion, normal respiratory effort - Abdomen Abdomen: soft, non tender - Psychiatric oriented to time, oriented to person, oriented to place, speech is normal Results - Labs 02/20/20 08:58 02/20/20 07:00 Abnormal Lab Results - Last 24 Hours (Table) 02/20/20 02/20/20 02/20/20 Range/Units 07:00 07:00 08:04 WBC 13.7 H (3.8-10.6) k/uL RBC 2.25 L (4.30-5.90) m/uL Hgb 7.4 L (13.0-17.5) gm/dL Hct 22.3 L (39.0-53.0) % MCV (80.0-100.0) fL Neutrophils # 10.5 H (1.3-7.7) k/uL Sodium 134 L (137-145) mmol/L Carbon Dioxide 19 L (22-30) mmol/L BUN 47 H (9-20) mg/dL Creatinine 3.30 H (0.66-1.25) mg/dL Glucose 131 H (74-99) mg/dL POC Glucose (mg/dL) 161 H (75-99) mg/dL Calcium 7.4 L (8.4-10.2) mg/dL 02/20/20 02/20/20 02/20/20 Range/Units 08:58 10:50 17:26 WBC 12.9 H (3.8-10.6) k/uL RBC 2.22 L (4.30-5.90) m/uL Hgb 7.2 L (13.0-17.5) gm/dL Hct 22.2 L (39.0-53.0) % MCV 100.1 H (80.0-100.0) fL Neutrophils # 10.1 H (1.3-7.7) k/uL Sodium (137-145) mmol/L Carbon Dioxide (22-30) mmol/L BUN (9-20) mg/dL Creatinine (0.66-1.25) mg/dL Glucose (74-99) mg/dL POC Glucose (mg/dL) 153 H 251 H (75-99) mg/dL Calcium (8.4-10.2) mg/dL Diabetes panel 02/20/20 Range/Units 07:00 Sodium 134 L (137-145) mmol/L Potassium 4.9 (3.5-5.1) mmol/L Chloride 105 (98-107) mmol/L Carbon Dioxide 19 L (22-30) mmol/L BUN 47 H (9-20) mg/dL Creatinine 3.30 H (0.66-1.25) mg/dL Glucose 131 H (74-99) mg/dL Calcium 7.4 L (8.4-10.2) mg/dL Calcium panel 02/20/20 Range/Units 07:00 Calcium 7.4 L (8.4-10.2) mg/dL Pituitary panel 02/20/20 Range/Units 07:00 Sodium 134 L (137-145) mmol/L Potassium 4.9 (3.5-5.1) mmol/L Chloride 105 (98-107) mmol/L Carbon Dioxide 19 L (22-30) mmol/L BUN 47 H (9-20) mg/dL Creatinine 3.30 H (0.66-1.25) mg/dL Glucose 131 H (74-99) mg/dL Calcium 7.4 L (8.4-10.2) mg/dL Adrenal panel 02/20/20 Range/Units 07:00 Sodium 134 L (137-145) mmol/L Potassium 4.9 (3.5-5.1) mmol/L Chloride 105 (98-107) mmol/L Carbon Dioxide 19 L (22-30) mmol/L BUN 47 H (9-20) mg/dL Creatinine 3.30 H (0.66-1.25) mg/dL Glucose 131 H (74-99) mg/dL Calcium 7.4 L (8.4-10.2) mg/dL Assessment and Plan Assessment: 34-year-old male status post TURBT and right ureteroscopy on February 17. Was seen in clinic for clot retention, 700 mL was drained from the bladder. Admitted to the hospital with NGOZI and acute blood loss anemia CT demonstrated evidence of right hydronephrosis and some blood products within the bladder. The catheter is draining light red urine, irrigating without any clots. His NGOZI is most likely secondary to his acute blood loss anemia, and his urinary retention. His hydronephrosis is most likely postprocedural from his right ureteroscopy. . Plan: -If creatinine returns to baseline no further intervention is needed, but continues to have persistent elevation in creatinine we'll obtain a renal bladder ultrasound to assess for resolution of [place] -Irrigated the catheter when necessary -We'll start ceftriaxone given the recent procedure, the bladder irrigation and catheter changes -Trend hemoglobin -Ditropan when necessary for bladder spasms
[2020-02-20 20:29] LABS: Glucose,Whole Blood 243 mg/dL (75-99)
[2020-02-20] MEDS: ATORVASTATIN 20 MG TAB PO SCH (21:11)
[2020-02-20] MEDS: DOXAZOSIN 4 MG TAB PO SCH (21:11)
[2020-02-20] MEDS: INSULIN DETEMIR (LEVEMIR) 100 UNIT/ML SYR SQ SCH (21:12)
[2020-02-21] MEDS: SODIUM CHLORIDE 0.9% 1,000 ML IV SCH ×2 (02:49→17:58)
[2020-02-21] MEDS: ACETAMINOPHEN TAB 325 MG TAB PO PRN (04:31)
[2020-02-21 07:30] LABS: Glucose,Whole Blood 163 mg/dL (75-99)
[2020-02-21 07:48] LABS: MCH 33.5 pg (25.0-35.0); MCV 98.3 fL (80.0-100.0); Mean Platelet Volume 7.1; Platelet Count 176 k/uL (150-450); RBC 1.89 m/uL (4.30-5.90); RDW 14.3 % (11.5-15.5); WBC 8.1 k/uL (3.8-10.6)
[2020-02-21 08:03] LABS: HCT 18.6 % (39.0-53.0); HGB 6.3 gm/dL (13.0-17.5)
[2020-02-21] MEDS: PANTOPRAZOLE 40 MG TABLET PO SCH (08:33)
[2020-02-21] MEDS: OXYBUTYNIN CHLORIDE 5 MG TAB PO SCH ×2 (08:34→20:12)
[2020-02-21] MEDS: carvediloL 12.5 MG TAB PO SCH ×2 (08:34→17:57)
[2020-02-21] MEDS: lisinopriL 20 MG TAB PO SCH ×2 (08:34→20:12)
[2020-02-21] MEDS: EZETIMIBE 10 MG TAB PO SCH (08:34)
[2020-02-21] MEDS: CHOLECALCIFEROL 1,000 UNIT TAB PO SCH (08:34)
[2020-02-21] MEDS: INSULIN ASPART (NovoLOG) 100 UNIT/ML VIAL SQ SCH ×4 (08:35→20:12)
--- NOTE | 2020-02-21 11:01 | P.PN ---
Subjective Progress Note Date: 02/21/20 Overnight catheter clogged with clots, I able to irrigate the dutton to clear, with return of old blood clots, urine light pink after irrigation. Denies abdominal pain, tolerating a diet. Hgb down to 6.3 from 7.2 yesterday Objective - Vital Signs Vital signs: Vital Signs Temp 98.4 F 02/21/20 10:28 Pulse 74 02/21/20 10:28 Resp 18 02/21/20 10:28 BP 120/63 02/21/20 10:28 Pulse Ox 96 02/21/20 10:28 Intake & Output 02/20/20 02/21/20 02/21/20 18:59 06:59 18:59 Intake Total 1680 0 Output Total 1400 3000 275 Balance -1400 -1320 -275 Intake: Intake, IV Titration 1200 Amount Sodium Chloride 0.9% 1, 1200 000 ml @ 100 mls/hr IV . Q10H [facility] Rx#:[id number] Oral 480 Blood Product 0 Rc As-1 Unit 0 [id number] Output: Urine 1400 3000 275 Straight 1150 Other: Voiding Method Indwelling Catheter Indwelling Catheter - Gastrointestinal General gastrointestinal: Present: soft. Absent: distended, tenderness - Genitourinary Genitourinary Comment(s): dutton light pink urine after irrigation - Psychiatric Psychiatric: Present: A&O x's 3 - Labs CBC & Chem 7: 02/21/20 06:51 02/20/20 07:00 Labs: Abnormal Lab Results - Last 24 Hours (Table) 02/19/20 02/20/20 02/20/20 Range/Units 20:32 17:26 20:27 RBC (4.30-5.90) m/uL Hgb (13.0-17.5) gm/dL Hct (39.0-53.0) % POC Glucose (mg/dL) 251 H 243 H (75-99) mg/dL Crossmatch See Detail 02/21/20 02/21/20 Range/Units 06:51 07:28 RBC 1.89 L (4.30-5.90) m/uL Hgb 6.3 L* (13.0-17.5) gm/dL Hct 18.6 L* (39.0-53.0) % POC Glucose (mg/dL) 163 H (75-99) mg/dL Crossmatch Assessment and Plan Assessment: 34-year-old male status post TURBT and right ureteroscopy on February 17. Was seen in clinic for clot retention, 700 mL was drained from the bladder. Admit neena to the hospital with NGOZI and acute blood loss anemia CT demonstrated evidence of right hydronephrosis and some blood products within the bladder. The catheter is draining light red urine, irrigating without any clots. His NGOZI is most likely secondary to his acute blood loss anemia, and his urinary retention. His hydronephrosis is most likely postprocedural from his right ureteroscopy. Hgb down to 6.3 from 7.2, urine light pink this urine, no evidence of active bleeding or fresh clots with irrigation. Plan: -If creatinine returns to baseline no further intervention is needed, but continues to have persistent elevation in creatinine we'll obtain a renal bl adder ultrasound to assess for resolution of [place]. Will recheck BMP htis am -Irrigated the catheter when necessary -We'll start ceftriaxone given the recent procedure, the bladder irrigation and catheter changes -Ditropan when necessary for bladder spasms -transfuse 2 u pRBC
[2020-02-21 11:16] LABS: Glucose,Whole Blood 281 mg/dL (75-99)
[2020-02-21 12:24] LABS: African American GFR (CKD) 32.7 (60.0-200.0); Anion Gap 4.3 mmol/L (4.00-12.00); Calcium 7.9 mg/dL (8.7-10.3); Carbon Dioxide 21.7 mmol/L (21.6-31.8); Non-African American GFR(CKD) 28.3 (60.0-200.0); Potassium 4.9 mmol/L (3.5-5.5)
--- NOTE | 2020-02-21 14:59 | P.PN ---
Subjective 74-year-old male with past medical history of possible bladder cancer who presents emergency Department with reported nausea, vomiting. Patient had a cystoscopy with Dr. Wetzel 2 days ago. It was found that the patient had 2 large bladder masses which were biopsied. Patient was sent home with a Perez catheter. Reports that he had some blood in his Perez last night. This morning he began developing suprapubic abdominal pain. He has been unable to eat and drink since before his surgery. Anything he eats he vomits back up. Denies bloody emesis. No fevers or chills. Denies changes in his bowel habits. He did see Dr. Wetzel in office today and his Perez was flushed. Patient appeared to have urinary retention because of which he called the urologist who asked him to come to the hospital patient denied any fever chills patient had a CT of the abdomen showed right-sided hydronephrosis. Patient's Perez catheter was flushed after which started working patient creatinine although went up to around 2.7 baseline appears to be around 1.49.. Patient denies any abdominal pain this time. No fevers or chills. Denies any sick contacts or similar symptoms. 02/21/2020 Patient hemoglobin dropped quite a bit and patient had significant blood clots today. Patient is receiving 2 units of blood transfusion. Patient has wheezing on exam patient was started on inhaled steroids. We will obtain a chest x-ray. Doesn't improve or if he gets short of breath. Patient is also receiving IV fluids at this time. Creatinine improved to 2.2 from 3.4 patient's improvement today 6.2, leukocytosis resolved Constitutional: Denied any fatigue denied any fever. Cardio vascular: denied any chest pain, palpitations Gastrointestinal denied any nausea vomiting Pulmonary: Denied any shortness of breath cough Neurologic denied any new focal deficits All inpatient medications were reviewed and appropriate changes in these medications as dictated in the interval history and assessment and plan. Objective - Vital Signs Vital signs: Vital Signs Temp 98.4 F 02/21/20 12:55 Pulse 73 02/21/20 13:05 Resp 18 02/21/20 13:05 BP 133/73 02/21/20 13:05 Pulse Ox 99 02/21/20 11:00 Intake & Output 02/20/20 02/21/20 02/21/20 18:59 06:59 18:59 Intake Total 1680 310 Output Total 1400 3000 1275 Balance -1400 -1320 -965 Intake: Intake, IV Titration 1200 Amount Sodium Chloride 0.9% 1, 1200 000 ml @ 100 mls/hr IV . Q10H [facility] Rx#:[id number] Oral 480 Blood Product 310 Rc As-1 Unit 310 [id number] Rc As-1 Unit 0 [id number] Output: Urine 1400 3000 1275 Straight 1150 1000 Other: Voiding Method Indwelling Catheter Indwelling Catheter Indwelling Catheter - Exam PHYSICAL EXAMINATION: GENERAL: The patient is alert and oriented x3, not in any acute distress. Well developed, well nourished. HEENT: Pupils are round and equally reacting to light. EOMI. No scleral icterus. No conjunctival pallor. Normocephalic, atraumatic. No pharyngeal erythema. No thyromegaly. CARDIOVASCULAR: S1 and S2 present. No murmurs, rubs, or gallops. PULMONARY: Chest is clear to auscultation, no wheezing or crackles. ABDOMEN: Soft, nontender, nondistended, normoactive bowel sounds. No palpable organomegaly. The catheter is draining but urine is bit bloody. MUSCULOSKELETAL: No joint swelling or deformity. EXTREMITIES: No cyanosis, clubbing, or pedal edema. NEUROLOGICAL: Gross neurological examination did not reveal any focal deficits. SKIN: No rashes. - Labs CBC & Chem 7: 02/21/20 06:51 02/21/20 06:51 Labs: Abnormal Lab Results - Last 24 Hours (Table) 02/19/20 02/20/20 02/20/20 Range/Units 20:32 17:26 20:27 RBC (4.30-5.90) m/uL Hgb (13.0-17.5) gm/dL Hct (39.0-53.0) % Chloride (96-109) mmol/L BUN (9.0-27.0) mg/dL Creatinine (0.6-1.5) mg/dL Est GFR (CKD-EPI)AfAm (60.0-200.0) Est GFR (CKD-EPI)NonAf (60.0-200.0) Glucose (70-110) mg/dL POC Glucose (mg/dL) 251 H 243 H (75-99) mg/dL Calcium (8.7-10.3) mg/dL Crossmatch See Detail 02/21/20 02/21/20 02/21/20 Range/Units 06:51 06:51 07:28 RBC 1.89 L (4.30-5.90) m/uL Hgb 6.3 L* (13.0-17.5) gm/dL Hct 18.6 L* (39.0-53.0) % Chloride 113 H (96-109) mmol/L BUN 44.0 H (9.0-27.0) mg/dL Creatinine 2.2 H (0.6-1.5) mg/dL Est GFR (CKD-EPI)AfAm 32.7 L (60.0-200.0) Est GFR (CKD-EPI)NonAf 28.3 L (60.0-200.0) Glucose 148 H (70-110) mg/dL POC Glucose (mg/dL) 163 H (75-99) mg/dL Calcium 7.9 L (8.7-10.3) mg/dL Crossmatch 02/21/20 Range/Units 11:06 RBC (4.30-5.90) m/uL Hgb (13.0-17.5) gm/dL Hct (39.0-53.0) % Chloride (96-109) mmol/L BUN (9.0-27.0) mg/dL Creatinine (0.6-1.5) mg/dL Est GFR (CKD-EPI)AfAm (60.0-200.0) Est GFR (CKD-EPI)NonAf (60.0-200.0) Glucose (70-110) mg/dL POC Glucose (mg/dL) 281 H (75-99) mg/dL Calcium (8.7-10.3) mg/dL Crossmatch Assessment and Plan Plan: -Acute renal failure: Secondary to obstructive uropathy and hydronephrosis from a obstruction of the Perez catheter creatinine is improving. 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 Patient has leukocytosis reactive but patient is already on empiric antibiotic as outpatient and patient is on Rocephin here. -Hyponatremia: Secondary to renal failure -Metabolic acidosis secondary to renal failure and hyperkalemia -Hypertension -Hyperlipidemia Because of hematuria patient will not be started on any DVT prophylaxis early ambulation will be recommended
[2020-02-21] MEDS: IPRATROPIUM-ALBUTEROL 3 ML NEB INHALATION SCH ×2 (16:07→20:18)
[2020-02-21 16:56] LABS: Glucose,Whole Blood 178 mg/dL (75-99)
[2020-02-21 20:01] LABS: Glucose,Whole Blood 249 mg/dL (75-99)
[2020-02-21] MEDS: INSULIN DETEMIR (LEVEMIR) 100 UNIT/ML SYR SQ SCH (20:11)
[2020-02-21] MEDS: ATORVASTATIN 20 MG TAB PO SCH (20:12)
[2020-02-21] MEDS: DOXAZOSIN 4 MG TAB PO SCH (20:12)
[2020-02-21] MEDS: BUDESONIDE 0.5 MG/2 ML NEBU INHALATION SCH (20:18)
[2020-02-22] MEDS: SODIUM CHLORIDE 0.9% 1,000 ML IV SCH ×2 (00:36→14:24)
[2020-02-22 06:34] LABS: HCT 25.6 % (39.0-53.0); MCH 31.7 pg (25.0-35.0); MCHC 32.8 g/dL (31.0-37.0); MCV 96.6 fL (80.0-100.0); Mean Platelet Volume 7.1; Platelet Count 187 k/uL (150-450); RBC 2.65 m/uL (4.30-5.90); RDW 15.7 % (11.5-15.5); WBC 9.1 k/uL (3.8-10.6)
[2020-02-22 06:50] LABS: HGB 8.4 gm/dL (13.0-17.5)
[2020-02-22] MEDS: IPRATROPIUM-ALBUTEROL 3 ML NEB INHALATION SCH ×2 (07:18→11:14)
[2020-02-22] MEDS: BUDESONIDE 0.5 MG/2 ML NEBU INHALATION SCH (07:18)
[2020-02-22 07:21] LABS: Glucose,Whole Blood 148 mg/dL (75-99)
[2020-02-22] MEDS: INSULIN ASPART (NovoLOG) 100 UNIT/ML VIAL SQ SCH ×2 (07:41→12:08)
[2020-02-22] MEDS: carvediloL 12.5 MG TAB PO SCH (07:41)
[2020-02-22] MEDS: CHOLECALCIFEROL 1,000 UNIT TAB PO SCH (07:41)
[2020-02-22] MEDS: lisinopriL 20 MG TAB PO SCH (07:41)
[2020-02-22] MEDS: PANTOPRAZOLE 40 MG TABLET PO SCH (07:41)
[2020-02-22] MEDS: EZETIMIBE 10 MG TAB PO SCH (07:42)
[2020-02-22] MEDS: OXYBUTYNIN CHLORIDE 5 MG TAB PO SCH (07:42)
[2020-02-22 09:36] LABS: African American GFR (CKD) 48.1 (60.0-200.0); Anion Gap 5.7 mmol/L (4.00-12.00); BUN/Creat Ratio 21.25 Ratio (12.00-20.00); Calcium 8.4 mg/dL (8.7-10.3); Carbon Dioxide 20.3 mmol/L (21.6-31.8); Non-African American GFR(CKD) 41.5 (60.0-200.0); Potassium 4.8 mmol/L (3.5-5.5)
[2020-02-22 10:55] VITALS: BP 136/68; RESP 18; TEMP 98.5
[2020-02-22 11:24] VITALS: PULSE 68
[2020-02-22 11:38] LABS: Glucose,Whole Blood 241 mg/dL (75-99)
--- NOTE | 2020-02-22 12:04 | P.DS ---
Providers Date of admission: 02/19/20 21:11 Attending physician: Sriram Cervantes Consults: 02/19/20 21:15 Consult Physician Urgent Consulting Provider: Gama Wetzel Consult Reason/Comments: gross hematuria s/p turbt, lisa Do you want consulting provider notified?: Already Contacted Primary care physician: [facility] Course: 74-year-old male with past medical history of possible bladder cancer who presents emergency Department with reported nausea, vomiting. Patient had a cystoscopy with Dr. Wetzel 2 days ago. It was found that the patient had 2 large bladder masses which were biopsied. Patient was sent home with a Perez catheter. Reports that he had some blood in his Perez last night. This morning he began developing suprapubic abdominal pain. He has been unable to eat and d rink since before his surgery. Anything he eats he vomits back up. Denies bloody emesis. No fevers or chills. Denies changes in his bowel habits. He did see Dr. Wetzel in office today and his Perez was flushed. Patient appeared to have urinary retention because of which he called the urologist who asked him to come to the hospital patient denied any fever chills patient had a CT of the abdomen showed right-sided hydronephrosis. Patient's Perez catheter was flushed after which started working patient creatinine although went up to around 2.7 baseline appears to be around 1.49.. Patient denies any abdominal pain this time. No fevers or chills. Denies any sick contacts or similar symptoms. 02/21/2020 Patient hemoglobin dropped quite a bit and patient had significant blood clots today. Patient is receiving 2 units of blood transfusion. Patient has wheezing on exam patient was started on inhaled steroids. We will obtain a chest x-ray. Doesn't improve or if he gets short of breath. Patient is also receiving IV fluids at this time. Creatinine improved to 2.2 from 3.4 patient's improvement today 6.2, leukocytosis resolved 02/22/2020 Patient the hemoglobin improved and remained stable no much clots from the Perez catheter patient wanted to go home. Patient is still having some rhonchi and mild wheezing patient will be discharged on inhaled steroids and inhalers. P atient present creatinine is 1.6 came down from 3.4. Metformin will be discontinued will also DC 70/30 will increase long-acting insulin that is Lantus to 30 units from 20 units patient may benefit from pre-meal insulin need to be evaluated for that as an outpatient. Patient is on Keflex which will be continued. PHYSICAL EXAMINATION: GENERAL: The patient is alert and oriented x3, not in any acute distress. Well developed, well nourished. HEENT: Pupils are round and equally reacting to light. EOMI. No scleral icterus. Does have conjunctival pallor. Normocephalic, atraumatic. No pharyngeal erythema. No thyromegaly. CARDIOVASCULAR: S1 and S2 present. No murmurs, rubs, or gallops. PULMONARY: bilateral rhonchi and mild wheezing ABDOMEN: Soft, nontender, nondistended, normoactive bowel sounds. No palpable organomegaly. The catheter is draining but urine is bit bloody. MUSCULOSKELETAL: No joint swelling or deformity. EXTREMITIES: No cyanosis, clubbing, or pedal edema. NEUROLOGICAL: Gross neurological examination did not reveal any focal deficits. SKIN: No rashes. Assessment and Plan Plan: -Acute renal failure: Secondary to obstructive uropathy and hydronephrosis from a obstruction of the Perez catheter creatinine is improving. 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 patient will be continued on Keflex as recommended by urology -Hyponatremia: Secondary to renal failure, improved -Metabolic acidosis secondary to renal failure and hyperkalemia -Hypertension -Hyperlipidemia Patient Condition at Discharge: Serious Plan - Discharge Summary Discharge Rx Participant: No New Discharge Prescriptions: New Fluticasone/Salmeterol [Advair 250-50 Diskus] 1 inhalation PO BID #1 inhaler Tiotropium [place] [Spiriva] 1 cap INHALATION DAILY #1 device Albuterol Inhaler [Ventolin Hfa Inhaler] 2 puff INHALATION RT-QID PRN #1 inhaler PRN Reason: Shortness Of Breath Or Wheezing Continue Vitamin B Complex 1 tab PO DAILY Ubidecarenone [Co Q-10] 100 mg PO DAILY Pioglitazone [Actos] 45 mg PO DAILY Omeprazole 40 mg PO DAILY Ezetimibe [Zetia] 10 mg PO DAILY Terazosin [Hytrin] 5 mg PO HS Cholecalciferol [Vitamin D3 (25 Mcg = 1000 Iu)] 1,000 unit PO DAILY Ginseng 100 mg PO DAILY Garlic 1 tab PO DAILY Cinnamon Bark [Cinnamon] 500 mg PO DAILY Carvedilol [Coreg] 12.5 mg PO BID C,E,Zinc,Copper 11/Dyotl2t/Lut [Ocuvite Adult 50 Plus Softgel] 1 cap PO DAILY Cephalexin [Keflex] 500 mg PO Q8HR #15 cap traMADol HCL [Ultram] 50 mg PO Q6HR PRN 3 Days #6 tab MDD 8 PRN Reason: Pain Aspirin 325 mg PO DIRECTED Carboxymethylcellulose Sodium [Refresh Tears] 1 drop BOTH EYES QID PRN PRN Reason: DRY EYES Folic Acid 0.8 mg PO BID Niacin [Slo-Niacin] 1,000 mg PO BID Nitroglycerin Sl Tabs [Nitrostat] 0.4 mg SUBLINGUAL Q5M PRN PRN Reason: Chest Pain ramipriL [Ramipril] 10 mg PO BID Simvastatin [Zocor] 40 mg PO HS Changed Insulin Glargine [Lantus] 30 unit SQ HS #0 Discontinued metFORMIN HCL [Glucophage] 1,000 mg PO BID Insulin NPL/Insulin Lispro [humaLOG MIX 75-25 VIAL] 30 unit SQ DAILY@1800 Insulin NPL/Insulin Lispro [humaLOG MIX 75-25 VIAL] 40 unit SQ QAM Discharge Medication List C,E,Zinc,Copper 11/Lsqro9k/Lut [Ocuvite Adult 50 Plus Softgel] 1 cap PO DAILY 02/16/20 [History] Carvedilol [Coreg] 12.5 mg PO BID 02/16/20 [History] Cholecalciferol [Vitamin D3 (25 Mcg = 1000 Iu)] 1,000 unit PO DAILY 02/16/20 [History] Cinnamon Bark [Cinnamon] 500 mg PO DAILY 02/16/20 [History] Ezetimibe [Zetia] 10 mg PO DAILY 02/16/20 [History] Garlic 1 tab PO DAILY 02/16/20 [History] Ginseng 100 mg PO DAILY 02/16/20 [History] Omeprazole 40 mg PO DAILY 02/16/20 [History] Pioglitazone [Actos] 45 mg PO DAILY 02/16/20 [History] Terazosin [Hytrin] 5 mg PO HS 02/16/20 [History] Ubidecarenone [Co Q-10] 100 mg PO DAILY 02/16/20 [History] Vitamin B Complex 1 tab PO DAILY 02/16/20 [History] Cephalexin [Keflex] 500 mg PO Q8HR #15 cap 02/18/20 [Rx] traMADol HCL [Ultram] 50 mg PO Q6HR PRN 3 Days #6 tab MDD 8 02/18/20 [Rx] Aspirin 325 mg PO DIRECTED 02/19/20 [History] Carboxymethylcellulose Sodium [Refresh Tears] 1 drop BOTH EYES QID PRN 02/19/20 [History] Folic Acid 0.8 mg PO BID 02/19/20 [History] Niacin [Slo-Niacin] 1,000 mg PO BID 02/19/20 [History] Nitroglycerin Sl Tabs [Nitrostat] 0.4 mg SUBLINGUAL Q5M PRN 02/19/20 [History] Simvastatin [Zocor] 40 mg PO HS 02/19/20 [History] ramipriL [Ramipril] 10 mg PO BID 02/19/20 [History] Albuterol Inhaler [Ventolin Hfa Inhaler] 2 puff INHALATION RT-QID PRN #1 inhaler 02/22/20 [Rx] Fluticasone/Salmeterol [Advair 250-50 Diskus] 1 inhalation PO BID #1 inhaler 02/22/20 [Rx] Insulin Glargine [Lantus] 30 unit SQ HS #0 02/22/20 [Rx] Tiotropium [place] [Spiriva] 1 cap INHALATION DAILY #1 device 02/22/20 [Rx] Follow up Appointment(s)/Referral(s): Gama Wetzel MD [STAFF PHYSICIAN] - 1 Week [facility], [NON-STAFF] - Pranav Hankins DO [Primary Care Provider] - 3 Days Discharge Disposition: HOME SELF-CARE
--- NOTE | 2020-02-22 12:38 | P.PN ---
Subjective Progress Note Date: 02/22/20 No acute overnight events. Denies any abdominal pain tolerating a diet and ambulating. His urine is clear yellow this morning. Received 2 units of packed RBC, hemoglobin responded accordingly. Objective - Vital Signs Vital signs: Vital Signs Temp 98.5 F 02/22/20 10:54 Pulse 68 02/22/20 11:24 Resp 18 02/22/20 10:54 BP 136/68 02/22/20 10:54 Pulse Ox 96 02/22/20 10:54 Intake & Output 02/21/20 02/22/20 02/22/20 18:59 06:59 18:59 Intake Total 740 1070 Output Total 1275 1800 100 Balance -535 -730 -100 Intake: Intake, IV Titration 240 Amount Sodium Chloride 0.9% 1, 240 000 ml @ 100 mls/hr IV . Q10H [facility] Rx#:[id number] Oral 120 830 Blood Product 620 Rc As-1 Unit 310 [id number] Rc As-1 Unit 310 [id number] Output: Urine 1275 1800 100 Straight 1000 1000 100 Other: Voiding Method Indwelling Catheter Indwelling Catheter Indwelling Catheter - Constitutional General appearance: Present: no acute distress - EENT Eyes: Present: EOMI ENT: Present: hearing grossly normal - Gastrointestinal General gastrointestinal: Present: soft. Absent: distended, rigid - Psychiatric Psychiatric: Present: A&O x's 3 - Labs CBC & Chem 7: 02/22/20 05:52 02/22/20 05:52 Labs: Abnormal Lab Results - Last 24 Hours (Table) 02/19/20 02/21/20 02/21/20 Range/Units 20:32 16:53 20:00 RBC (4.30-5.90) m/uL Hgb (13.0-17.5) gm/dL Hct (39.0-53.0) % RDW (11.5-15.5) % Chloride (96-109) mmol/L Carbon Dioxide (21.6-31.8) mmol/L BUN (9.0-27.0) mg/dL Creatinine (0.6-1.5) mg/dL Est GFR (CKD-EPI)AfAm (60.0-200.0) Est GFR (CKD-EPI)NonAf (60.0-200.0) BUN/Creatinine Ratio (12.00-20.00) Ratio Glucose (70-110) mg/dL POC Glucose (mg/dL) 178 H 249 H (75-99) mg/dL Calcium (8.7-10.3) mg/dL Crossmatch See Detail 02/22/20 02/22/20 02/22/20 Range/Units 05:52 05:52 07:12 RBC 2.65 L (4.30-5.90) m/uL Hgb 8.4 L D (13.0-17.5) gm/dL Hct 25.6 L (39.0-53.0) % RDW 15.7 H (11.5-15.5) % Chloride 114 H (96-109) mmol/L Carbon Dioxide 20.3 L (21.6-31.8) mmol/L BUN 34.0 H (9.0-27.0) mg/dL Creatinine 1.6 H (0.6-1.5) mg/dL Est GFR (CKD-EPI)AfAm 48.1 L (60.0-200.0) Est GFR (CKD-EPI)NonAf 41.5 L (60.0-200.0) BUN/Creatinine Ratio 21.25 H (12.00-20.00) Ratio Glucose 129 H (70-110) mg/dL POC Glucose (mg/dL) 148 H (75-99) mg/dL Calcium 8.4 L (8.7-10.3) mg/dL Crossmatch 02/22/20 Range/Units 11:36 RBC (4.30-5.90) m/uL Hgb (13.0-17.5) gm/dL Hct (39.0-53.0) % RDW (11.5-15.5) % Chloride (96-109) mmol/L Carbon Dioxide (21.6-31.8) mmol/L BUN (9.0-27.0) mg/dL Creatinine (0.6-1.5) mg/dL Est GFR (CKD-EPI)AfAm (60.0-200.0) Est GFR (CKD-EPI)NonAf (60.0-200.0) BUN/Creatinine Ratio (12.00-20.00) Ratio Glucose (70-110) mg/dL POC Glucose (mg/dL) 241 H (75-99) mg/dL Calcium (8.7-10.3) mg/dL Crossmatch Assessment and Plan Assessment: 34-year-old male status post TURBT and right ureteroscopy on February 17. Was seen in clinic for clot retention, 700 mL was drained from the bladder. Admitted to the hospital with NGOZI and acute blood loss anemia CT demonstrated evidence of right hydronephrosis and some blood products within the bladder. The catheter is draining light red urine, irrigating without any clots. His NGOZI is most likely secondary to his acute blood loss anemia, and his urinary retention. Received 2 units of blood on February 20, and hemoglobin responded accordingly. This a.m. his hemoglobin is stable, and his NGOZI has resolved. His urine is clear this morning Plan: -Can be discharged home with the Perez catheter -Can keep his follow-up on 02/24
== END 2020-02-22 14:25 | disposition home health service (06) | DRG 683 ==
LOC: EC 16:04 → 4SSUR 21:11 → 6NMEDSUR 22:54
PROVIDERS: ADMIT Internal Medicine; ATTEND Internal Medicine
PROC: 30233N1 Transfusion of Nonautologous Red Blood Cells into Peripheral Vein, Percutaneous Approach (ICD-10-PCS; principal; 2020-02-19)
DX: N17.9 Acute kidney failure, unspecified (principal); E87.2 Acidosis; E87.1 Hypo-osmolality and hyponatremia; D62 Acute posthemorrhagic anemia; N32.89 Other specified disorders of bladder; R31.0 Gross hematuria; N18.2 Chronic kidney disease, stage 2 (mild); I12.9 Hypertensive chronic kidney disease with stage 1 through stage 4 chronic kidney disease, or unspecified chronic kidney disease; Z20.822 Contact with and (suspected) exposure to COVID-19; E87.5 Hyperkalemia; C67.9 Malignant neoplasm of bladder, unspecified; N13.30 Unspecified hydronephrosis; F32.9 Major depressive disorder, single episode, unspecified; Z79.4 Long term (current) use of insulin; E86.0 Dehydration; E78.5 Hyperlipidemia, unspecified; E11.22 Type 2 diabetes mellitus with diabetic chronic kidney disease; D72.829 Elevated white blood cell count, unspecified; Z87.891 Personal history of nicotine dependence; Z85.51 Personal history of malignant neoplasm of bladder; Z79.899 Other long term (current) drug therapy
CPT/HCPCS: 36415; 51798; 71046; 74176; 80048; 80053; 83605; 83690; 85025; 85027; 85610; 85730; 86850; 86900; 86901; 86920; 87635; 93005; 94640; 96361; 96374; 99285

== ENCOUNTER 2020-03-27 17:44 | Emergency (ER) | payer MEDICARE ==
[2020-03-27 17:53] VITALS: BP 121/70; PULSE 100; RESP 18; TEMP 98.5
[2020-03-27] MEDS ORDERED: SODIUM CHLORIDE 0.9% 1,000 ML IV STA (18:16)
[2020-03-27 18:47] LABS: Anisocytosis Slight; Basophils % (A) 0 %; Eosinophils # (A) 0.3 k/uL (0-0.7); Eosinophils % (A) 3 %; HCT 26.7 % (39.0-53.0); HGB 8.8 gm/dL (13.0-17.5); Lymphocytes # (A) 1.8 k/uL (1.0-4.8); Lymphocytes % (A) 17 %; MCH 31.3 pg (25.0-35.0); MCHC 32.8 g/dL (31.0-37.0); MCV 95.4 fL (80.0-100.0); Mean Platelet Volume 6.7; Monocytes # (A) 0.6 k/uL (0-1.0); Monocytes % (A) 5 %; Neutrophils # (A) 8.2 k/uL (1.3-7.7); Neutrophils % (A) 74 %; Platelet Count 262 k/uL (150-450); Poikilocytosis Slight; WBC 11.1 k/uL (3.8-10.6)
[2020-03-27 18:56] LABS: Albumin 3.2 g/dL (3.5-5.0); Calcium 8.9 mg/dL (8.4-10.2); Potassium 4.8 mmol/L (3.5-5.1); Total Bilirubin 0.3 mg/dL (0.2-1.3); Total Protein 6.2 g/dL (6.3-8.2)
--- NOTE | 2020-03-27 19:50 | ED ---
Male Urogenital HPI - General Chief complaint: Urogenital Stated complaint: kidney problem Time Seen by Provider: 03/27/20 18:07 Source: patient Mode of arrival: wheelchair Limitations: no limitations - History of Present Illness Initial comments: [id number] male with history of bladder cancer presents to emergency department with a chief complaint of not able to make urine. Patient states he had an exploratory cystoscopy yesterday by and was discharged with a Perez catheter. Patient states he did empty out the Perez catheter this morning and did notice hematuria. States that afterwards, he continues to drink large amounts of fluid but was not producing any urine. States he went to the emergency department another facility where he was found to be anemic and to have possible acute kidney injury. Patient states Dr. Wetzel was contacted who advised the patient come to this emergency department and be admitted for further medical management. Patient denies any abdominal pain chest pain back pain shortness of breath. Denies any fevers or chills. - Related Data Home Medications Medication Instructions Recorded Confirmed C,E,Zinc,Copper 11/Oumwq7n/Lut 1 cap PO DAILY 02/16/20 02/19/20 [Ocuvite Adult 50 Plus Softgel] Carvedilol [Coreg] 12.5 mg PO BID 02/16/20 02/19/20 Cholecalciferol [Vitamin D3 (25 1,000 unit PO DAILY 02/16/20 02/19/20 Mcg = 1000 Iu)] Cinnamon Bark [Cinnamon] 500 mg PO DAILY 02/16/20 02/19/20 Ezetimibe [Zetia] 10 mg PO DAILY 02/16/20 02/19/20 Garlic 1 tab PO DAILY 02/16/20 02/19/20 Ginseng 100 mg PO DAILY 02/16/20 02/19/20 Omeprazole 40 mg PO DAILY 02/16/20 02/19/20 Pioglitazone [Actos] 45 mg PO DAILY 02/16/20 02/19/20 Terazosin [Hytrin] 5 mg PO HS 02/16/20 02/19/20 Ubidecarenone [Co Q-10] 100 mg PO DAILY 02/16/20 02/19/20 Vitamin B Complex 1 tab PO DAILY 02/16/20 02/19/20 Aspirin 325 mg PO DIRECTED 02/19/20 02/19/20 Carboxymethylcellulose Sodium 1 drop BOTH EYES QID PRN 02/19/20 02/19/20 [Refresh Tears] Folic Acid 0.8 mg PO BID 02/19/20 02/19/20 Niacin [Slo-Niacin] 1,000 mg PO BID 02/19/20 02/19/20 Nitroglycerin Sl Tabs [Nitrostat] 0.4 mg SUBLINGUAL Q5M PRN 02/19/20 02/19/20 Simvastatin [Zocor] 40 mg PO HS 02/19/20 02/19/20 ramipriL [Ramipril] 10 mg PO BID 02/19/20 02/19/20 Previous Rx's Medication Instructions Recorded Cephalexin [Keflex] 500 mg PO Q8HR #15 cap 02/18/20 traMADol HCL [Ultram] 50 mg PO Q6HR PRN 3 Days #6 tab 02/18/20 MDD 8 Albuterol Inhaler [Ventolin Hfa 2 puff INHALATION RT-QID PRN #1 02/22/20 Inhaler] inhaler Fluticasone/Salmeterol [Advair 1 inhalation PO BID #1 inhaler 02/22/20 250-50 Diskus] Insulin Glargine [Lantus] 30 unit SQ HS #0 02/22/20 Tiotropium [place] [Spiriva] 1 cap INHALATION DAILY #1 device 02/22/20 Allergies Allergy/AdvReac Type Severity Reaction Status Date / Time No Known Allergies Allergy Verified 03/27/20 17:53 Review of Systems ROS Statement: Those systems with pertinent positive or pertinent negative responses have been documented in the HPI. ROS Other: All systems not noted in ROS Statement are negative. Past Medical History Past Medical History: Cancer Additional Past Medical History / Comment(s): Bladder CA History of Any Multi-Drug Resistant Organisms: None Reported Additional Past Surgical History / Comment(s): TURPT Past Psychological History: No Psychological Hx Reported Smoking Status: Former smoker Past Alcohol Use History: Occasional Past Drug Use History: None Reported General Exam Limitations: no limitations General appearance: alert, in no apparent distress Head exam: Present: atraumatic, normocephalic, normal inspection Eye exam: Present: normal appearance, PERRL, EOMI Pupils: Present: normal accommodation ENT exam: Present: normal exam, normal oropharynx, mucous membranes moist Neck exam: Present: normal inspection, full ROM. Absent: tenderness Respiratory exam: Present: normal lung sounds bilaterally. Absent: respiratory distress Cardiovascular Exam: Present: regular rate, normal rhythm, normal heart sounds GI/Abdominal exam: Present: soft, normal bowel sounds. Absent: distended, tenderness, guarding exam: Present: normal inspection (Foleyl catheter in place). Absent: testicular tenderness, urethral discharge, scrotal swelling, vertical testicular lie Extremities exam: Present: normal inspection, full ROM, normal capillary refill. Absent: tenderness, pedal edema, joint swelling Back exam: Present: normal inspection, full ROM. Absent: tenderness, CVA tenderness (R), CVA tenderness (L) Neurological exam: Present: alert, oriented X3 Psychiatric exam: Present: normal affect, normal mood Skin exam: Present: warm, dry, intact, normal color Course Vital Signs 03/27/20 17:49 Temperature 98.5 F Pulse Rate 100 Respiratory 18 Rate Blood Pressure 121/70 O2 Sat by Pulse 96 Oximetry Medical Decision Making - Medical Decision Making 74-year-old male with history of bladder cancer presents emergency Department with a chief complaint of not producing urine. On physical examination, patient has no significant tenderness at. examination is unremarkable. CBC reveals anemia although this appears to be chronic. CMP reveals poor renal function with BUN of 26 and creatinine of 2.5, an increase from 1.6 from 1 month ago. While in the ED patient was given 1 L IV bolus fluids. Patient has been drinking plenty of fluids otherwise prior to arrival. Patient was able to have 150 mL spontaneously. no gross hematuria noted. UA positive for hematuria, blood cells and leukocyte esterase. this likely secondary to the recent procedure. I spoke with who states the patient can be discharged with outpatient follow-up. I discussed information with the patient, he feels comfortable going home. They will follow up in outpatient setting. Patient will be discharged. Strict return parameters were thoroughly discussed the patient was understanding and agreeable. Case discussed with - Lab Data Result diagrams: 03/27/20 18:39 03/27/20 18:39 Lab Results 03/27/20 03/27/20 03/27/20 Range/Units 18:39 18:39 19:19 WBC 11.1 H (3.8-10.6) k/uL RBC 2.80 L (4.30-5.90) m/uL Hgb 8.8 L (13.0-17.5) gm/dL Hct 26.7 L (39.0-53.0) % MCV 95.4 (80.0-100.0) fL MCH 31.3 (25.0-35.0) pg MCHC 32.8 (31.0-37.0) g/dL RDW 16.0 H (11.5-15.5) % Plt Count 262 (150-450) k/uL MPV 6.7 Neutrophils % 74 % Lymphocytes % 17 % Monocytes % 5 % Eosinophils % 3 % Basophils % 0 % Neutrophils # 8.2 H (1.3-7.7) k/uL Lymphocytes # 1.8 (1.0-4.8) k/uL Monocytes # 0.6 (0-1.0) k/uL Eosinophils # 0.3 (0-0.7) k/uL Basophils # 0.0 (0-0.2) k/uL Poikilocytosis Slight Anisocytosis Slight Sodium 136 L (137-145) mmol/L Potassium 4.8 (3.5-5.1) mmol/L Chloride 102 (98-107) mmol/L Carbon Dioxide 23 (22-30) mmol/L Anion Gap 11 mmol/L BUN 26 H (9-20) mg/dL Creatinine 2.50 H (0.66-1.25) mg/dL Est GFR (CKD-EPI)AfAm 28 (>60 ml/min/1.73 sqM) Est GFR (CKD-EPI)NonAf 24 (>60 ml/min/1.73 sqM) Glucose 108 H (74-99) mg/dL Calcium 8.9 (8.4-10.2) mg/dL Total Bilirubin 0.3 (0.2-1.3) mg/dL AST 47 (17-59) U/L ALT 24 (4-49) U/L Alkaline Phosphatase 47 (38-126) U/L Total Protein 6.2 L (6.3-8.2) g/dL Albumin 3.2 L (3.5-5.0) g/dL Urine Color [place] Urine Appearance Turbid (Clear) Urine pH 6.0 (5.0-8.0) Ur Specific [place] 1.019 (1.001-1.035) Urine Protein 3+ H (Negative) Urine Glucose (UA) 1+ H (Negative) Urine Ketones Negative (Negative) Urine Blood Large H (Negative) Urine Nitrite Negative (Negative) Urine Bilirubin Negative (Negative) Urine Urobilinogen <2.0 (<2.0) mg/dL Ur Leukocyte Esterase Large H (Negative) Urine RBC >182 H (0-5) /hpf Urine WBC >182 H (0-5) /hpf Urine WBC Clumps Many H (None) /hpf Urine Bacteria Occasional H (None) /hpf Hyaline Casts 6 H (0-2) /lpf Urine Mucus Moderate H (None) /hpf Blood Type Blood Type Recheck Bld Type Recheck Status Antibody Screen Spec Expiration Date 03/27/20 Range/Units 19:21 WBC (3.8-10.6) k/uL RBC (4.30-5.90) m/uL Hgb (13.0-17.5) gm/dL Hct (39.0-53.0) % MCV (80.0-100.0) fL MCH (25.0-35.0) pg MCHC (31.0-37.0) g/dL RDW (11.5-15.5) % Plt Count (150-450) k/uL MPV Neutrophils % % Lymphocytes % % Monocytes % % Eosinophils % % Basophils % % Neutrophils # (1.3-7.7) k/uL Lymphocytes # (1.0-4.8) k/uL Monocytes # (0-1.0) k/uL Eosinophils # (0-0.7) k/uL Basophils # (0-0.2) k/uL Poikilocytosis Anisocytosis Sodium (137-145) mmol/L Potassium (3.5-5.1) mmol/L Chloride (98-107) mmol/L Carbon Dioxide (22-30) mmol/L Anion Gap mmol/L BUN (9-20) mg/dL Creatinine (0.66-1.25) mg/dL Est GFR (CKD-EPI)AfAm (>60 ml/min/1.73 sqM) Est GFR (CKD-EPI)NonAf (>60 ml/min/1.73 sqM) Glucose (74-99) mg/dL Calcium (8.4-10.2) mg/dL Total Bilirubin (0.2-1.3) mg/dL AST (17-59) U/L ALT (4-49) U/L Alkaline Phosphatase (38-126) U/L Total Protein (6.3-8.2) g/dL Albumin (3.5-5.0) g/dL Urine Color Urine Appearance (Clear) Urine pH (5.0-8.0) Ur Specific [place] (1.001-1.035) Urine Protein (Negative) Urine Glucose (UA) (Negative) Urine Ketones (Negative) Urine Blood (Negative) Urine Nitrite (Negative) Urine Bilirubin (Negative) Urine Urobilinogen (<2.0) mg/dL Ur Leukocyte Esterase (Negative) Urine RBC (0-5) /hpf Urine WBC (0-5) /hpf Urine WBC Clumps (None) /hpf Urine Bacteria (None) /hpf Hyaline Casts (0-2) /lpf Urine Mucus (None) /hpf Blood Type A Positive Blood Type Recheck A Pos Bld Type Recheck Status No Antibody Screen NEGATIVE Spec Expiration Date 03/30/20202320 - EKG Data EKG Comments: sinus rhythm with first-degree AV block, right bundle-branch block Ventricular rate 90, NC 274, QRS 146, QTc 467. Disposition Clinical Impression: Urinary tract infection, Hematuria, Anemia Disposition: HOME SELF-CARE Condition: Stable Additional Instructions: take prescribedmedication as directed. Follow with primary care physician. Return to emergency department if symptoms worsen. Is patient prescribed a controlled substance at d/c from ED?: No Referrals: Pranav Hankins DO [Primary Care Provider] - 1-2 days Time of Disposition: 20:39
[2020-03-27 19:59] LABS: Appearance,Urine Turbid (Clear); Bacteria,Urine Occasional /hpf; Bilirubin,Urine Negative (Negative); Blood,Urine Large (Negative); Color,Urine Orange; Glucose,Urine (UA) 1+ (Negative); Hyaline Casts,Urine 6 /lpf (0-2); Ketones,Urine Negative (Negative); Leukocyte Esterase,Urine Large (Negative); Mucus,Urine Moderate /hpf; Nitrite,Urine Negative (Negative); Protein,Urine 3+ (Negative); RBC,Urine >182 /hpf (0-5); Specific Gravity,Urine 1.019 (1.001-1.035); Urobilinogen,Urine <2.0 mg/dL (<2.0); WBC,Urine >182 /hpf (0-5)
== END 2020-03-27 21:19 | disposition home or self-care (01) ==
LOC: EC 17:44
DX: N39.0 Urinary tract infection, site not specified (principal); D64.9 Anemia, unspecified; R31.9 Hematuria, unspecified; Z79.02 Long term (current) use of antithrombotics/antiplatelets; Z79.82 Long term (current) use of aspirin; Z79.899 Other long term (current) drug therapy; Z87.891 Personal history of nicotine dependence; Z85.51 Personal history of malignant neoplasm of bladder
CPT/HCPCS: 36415; 80053; 81001; 85025; 86850; 86900; 86901; 87086; 93005; 96360; 99284

== ENCOUNTER → 2021-09-21 | Outpatient (CLI) | payer MEDICARE ==
--- NOTE | 2021-09-21 14:05 | CT ---
EXAMINATION TYPE: CT abdomen pelvis wo con CT DLP: 814.30 mGycm, Automated exposure control for dose reduction was used. DATE OF EXAM: 09/21/2021 1:53 PM COMPARISON: CT abdomen pelvis most recent from 02/19/2020, 02/05/2020. CLINICAL INDICATION:Male, 75 years old with history of C67.9 Bladder cancer; Hx bladder ca. Pt having frequent bladder infections TECHNIQUE: Standard CT of the abdomen and pelvis without IV or oral contrast. Lack of IV or oral co ntrast limits evaluation of solid and hollow organ viscera. Coronal and sagittal reformats were perfo rmed. FINDINGS: LOWER CHEST: Stable left lobe 5 mm pulmonary nodule (series 4, image 6). Coronary artery calcificatio ns. ABDOMEN LIVER: Stable subcentimeter hypoattenuating foci of within the right hepatic lobe which are too small to characterize. Stable punctate calcified granulomas. GALLBLADDER AND BILE DUCTS: The gallbladder is surgically absent. No biliary duct dilatation. PANCREAS: Unremarkable noncontrast appearance. SPLEEN: Multiple calcified granulomas within the spleen. ADRENAL GLANDS: Unremarkable noncontrast appearance. KIDNEYS AND URETERS: No evidence of hydronephrosis or renal calculus. Stable left renal cysts. PELVIS BLADDER: Under distended with wall thickening. Evaluation is limited due to underdistention lack of c ontrast. REPRODUCTIVE: Unremarkable. ABDOMEN & PELVIS STOMACH AND BOWEL: Stomach and duodenum are unremarkable. Colonic diverticulosis without evidence for acute diverticulitis. The appendix is within normal limits. No evidence of bowel obstruction. PERITONEUM: No evidence of pneumoperitoneum or free fluid. VASCULATURE: Infrarenal fusiform abdominal aortic aneurysm is redemonstrated measuring 4.8 x 4.5 cm, stable. Moderate vascular calcification of the aorta and its branches. MUSCULOSKELETAL: No acute osseous abnormalities. Median sternotomy wires. Multilevel degenerative libby nges of the visualized spine. No aggressive osseous lesions. LYMPH NODES: No gross evidence for lymphadenopathy. SOFT TISSUE/ABDOMINAL WALL: Unremarkable IMPRESSION: 1. No acute abdominal cyst pelvic process. 2. Resolution of previously seen right hydronephrosis. There is underdistention of the urinary bladde r with wall thickening. Evaluation is limited due to lack of distention and contrast. Cannot exclude residual/recurrent bladder cancer. 3. Colonic diverticulosis without evidence for acute diverticulitis. 4. Stable 4.8 cm infrarenal abdominal aortic aneurysm.
== END | disposition home or self-care (01) ==
LOC: RADCTMAIN 13:24
PROVIDERS: ATTEND Urology
DX: C67.9 Malignant neoplasm of bladder, unspecified (principal); K57.30 Diverticulosis of large intestine without perforation or abscess without bleeding; I71.4 Abdominal aortic aneurysm, without rupture
CPT/HCPCS: 74176

== ENCOUNTER → 2021-10-11 | Outpatient (CLI) | payer MEDICARE ==
[2021-10-11 18:33] LABS: African American GFR (CKD) 61.4 (60.0-200.0); Anion Gap 9.1 mmol/L (10.00-18.00); Blood Urea Nitrogen 18.2 mg/dL (9.0-27.0); Calcium 8.6 mg/dL (8.7-10.3); Carbon Dioxide 21.9 mmol/L (20.0-27.5); Potassium 4.5 mmol/L (3.5-5.5)
[2021-10-11 18:36] LABS: Basophils # (A) 0.02 X 10*3/uL (0.00-0.10); Basophils % (A) 0.3 %; Eosinophils # (A) 0.12 X 10*3/uL (0.04-0.35); Eosinophils % (A) 1.5 %; HCT 27.3 % (39.6-50.0); HGB 9.4 g/dL (13.0-17.0); Immature Grans, Automated 0.3 %; Lymphocytes # (A) 2.18 X 10*3/uL (0.90-5.00); Lymphocytes % (A) 27.8 %; MCH 34.4 pg (27.0-32.0); MCHC 34.4 g/dL (32.0-37.0); Mean Platelet Volume 9.6 fL (9.5-12.2); Monocytes # (A) 0.79 X 10*3/uL (0.20-1.00); Monocytes % (A) 10.1 %; NRBC Per 100 WBC 0 /100 WBCS (0.0-0.0); Neutrophils # (A) 4.72 X 10*3/uL (1.80-7.70); Platelet Count 190 X 10*3/uL (140-440); RBC 2.73 X 10*6/uL (4.40-5.60); RDW 13.8 % (11.5-14.5); WBC 7.85 X 10*3/uL (4.50-10.00)
== END | disposition home or self-care (01) ==
LOC: LABPAT 10:29
PROVIDERS: ATTEND Urology
DX: Z01.812 Encounter for preprocedural laboratory examination (principal); N40.1 Benign prostatic hyperplasia with lower urinary tract symptoms
CPT/HCPCS: 80048; 85025; 87086

== ENCOUNTER 2021-10-17 07:12 | Day surgery (SDC) | payer MEDICARE ==
[~2021-10-17 07:12] MED LIST changes: +DEXAMETHASONE SOD PHOSPHATE 4 MG/ML 1 ML VIAL IV ONE; +HYDROmorphone 0.5 MG/0.5 ML SYRINGE IVP PRN; +LACTATED RINGERS 1,000 ML IV SCH; +ONDANSETRON 4 MG/2 ML VIAL IVP ONE; -ceFAZolin 3 GM in SODIUM CHLORIDE 0.9% 100 ML IVPB PRN
[2021-10-17 07:57] LABS: Glucose,Whole Blood 173 mg/dL (70-110)
[2021-10-17] MEDS ORDERED: PROPOFOL 10 MG/ML 20 ML VIAL IV ONE (08:31)
[2021-10-17] MEDS ORDERED: LIDOCAINE 2% INJ 20 MG/ML (2 ML VIAL) ONE (08:31)
[2021-10-17] MEDS ORDERED: fentaNYL (PF) 50 MCG/ML 2 ML AMP ONE (08:31)
[2021-10-17] MEDS ORDERED: ePHEDrine 50 MG/ML 1 ML VIAL ONE (08:31)
[2021-10-17] MEDS ORDERED: MIDAZOLAM 2 MG/2 ML VIAL ONE (08:31)
[2021-10-17 09:30] VITALS: RESP 16; TEMP 97
--- NOTE | 2021-10-17 09:38 | P.HPIHPCON ---
History of Present Illness H&P Date: 10/17/21 Chief Complaint: BPH This is 75-year-old male with history of BPH and bladder cancer. He has failed medical therapy. Underwent a cystoscopy that showed evidence of an obstructive prostate lateral lobes. Option of urolift versus TURP was discussed with him in details. Discussed the Risk and benefit of each approach. He agreed to proceed with urolift. Discussed the risk which includes but not limited to bleeding, infection, urinary incontinence, and persistent symptoms. He understood all the risk and agreed to proceed with urolift Consent for Procedure: I have explained the operation/procedure to the patient, including the risks, benefits, side effects, alternative therapies (including not receiving the proposed treatment or service), the likelihood of the patient achieving his/her goals, and potential recuperation problems for the procedure/sedation/analgesia, as well as any blood products, if indicated. I also explained to the patient the risks, benefits and side effects of the alternatives, as well as the risks related to not receiving the proposed procedure, care, treatment, or services. 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 Hx of skin cancer 4 yrs ago (beta cell). Enlarged prostate. 4 UTIs this year. uses CPAP History of Any Multi-Drug Resistant Organisms: None Reported Past Surgical History: Cholecystectomy, Coronary Bypass/CABG Additional Past Surgical History / Comment(s): TURP, LT knee surgery from accident. Bilateral elbow surgery moved nerves. Rt rotator cuff. quad bypass. . Past Anesthesia/Blood Transfusion Reactions: No Reported Reaction Additional Past Anesthesia/Blood Transfusion Reaction / Comment(s): no issues with blood transfusion Smoking Status: Former smoker - Past Family History Father Family Medical History: Congestive Heart Failure (CHF) Mother Family Medical History: Congestive Heart Failure (CHF) Medications and Allergies Home Medications Medication Instructions Recorded Confirmed Type C,E,Zinc,Copper 11/Fxglc2p/Lut 1 cap PO DAILY 02/16/20 10/17/21 History [Ocuvite Adult 50 Plus Softgel] Cholecalciferol [Vitamin D3 (25 1,000 unit PO DAILY 02/16/20 10/17/21 History Mcg = 1000 Iu)] Cinnamon Bark [Cinnamon] 500 mg PO DAILY 02/16/20 10/17/21 History Ezetimibe [Zetia] 10 mg PO DAILY 02/16/20 10/17/21 History Garlic 1 tab PO DAILY 02/16/20 10/17/21 History Ginseng 100 mg PO DAILY 02/16/20 10/17/21 History Terazosin [Hytrin] 5 mg PO HS 02/16/20 10/17/21 History Ubidecarenone [Co Q-10] 100 mg PO DAILY 02/16/20 10/17/21 History Vitamin B Complex 1 tab PO DAILY 02/16/20 10/17/21 History carvediloL [Coreg] 12.5 mg PO BID 02/16/20 10/17/21 History Aspirin 325 mg PO DIRECTED 02/19/20 10/17/21 History Carboxymethylcellulose Sodium 1 drop BOTH EYES QID PRN 02/19/20 10/17/21 History [Refresh Tears] Folic Acid 0.8 mg PO BID 02/19/20 10/17/21 History Niacin [Slo-Niacin] 1,000 mg PO BID 02/19/20 10/17/21 History Nitroglycerin Sl Tabs [Nitrostat] 0.4 mg SUBLINGUAL Q5M PRN 02/19/20 10/17/21 History Simvastatin [Zocor] 40 mg PO HS 02/19/20 10/17/21 History ramipriL [Ramipril] 10 mg PO BID 02/19/20 10/17/21 History Insulin Glargine [Lantus Vial] 30 unit SQ BID 10/14/21 10/17/21 History Insulin Lispro [humaLOG Kwikpen] 0 unit SQ DIRECTED 10/14/21 10/17/21 History metFORMIN HCL 1,000 mg PO BID 10/14/21 10/17/21 History Ciprofloxacin HCl [Cipro] 250 mg PO Q12HR #6 tablet 10/17/21 Rx Phenazopyridine HCl [Pyridium] 100 mg PO TID #10 tab 10/17/21 Rx Allergies Allergy/AdvReac Type Severity Reaction Status Date / Time No Known Allergies Allergy Verified 10/17/21 07:40 Surgical - Exam Vital Signs Temp Pulse Resp BP Pulse Ox 98.2 F 57 L 17 143/65 98 10/17/21 07:37 10/17/21 07:37 10/17/21 07:37 10/17/21 07:37 10/17/21 07:37 - General no distress, no pain - Eyes normal ocular movement, no pale - ENT normal nares, normal mucosa - Respiratory normal expansion, normal respiratory effort - Abdomen Abdomen: soft, non tender Results - Labs Abnormal Lab Results - Last 24 Hours (Table) 10/17/21 Range/Units 07:56 POC Glucose (mg/dL) 173 H (70-110) mg/dL Assessment and Plan Assessment: OR for Urolift
--- NOTE | 2021-10-17 09:39 | P.OP ---
Date of Procedure: 10/17/21 Preoperative Diagnosis: BPH Postoperative Diagnosis: same Procedure(s) Performed: Urolift X6 Implants: Urolift implant X 6 Anesthesia: GETA Surgeon: Gama Wetzel Estimated Blood Loss (ml): 10 Pathology: none sent Condition: stable Disposition: PACU Indications for Procedure: This is 75-year-old male with history of BPH and bladder cancer. He has failed medical therapy. Underwent a cystoscopy that showed evidence of an obstructive prostate lateral lobes. Option of urolift versus TURP was discussed with him in details. Discussed the Risk and benefit of each approach. He agreed to proceed with urolift. Discussed the risk which includes but not limited to bleeding, infection, urinary incontinence, and persistent symptoms. He understood all the risk and agreed to proceed with urolift Description of Procedure: Patient brought to the operating room, general anesthesia was induced. He was draped so fashion a placement dorsal lithotomy position. Patient had meatal stenosis, which was dilated to 22-Kazakh using the [place] male sounds. A cystoscopy fitted with 21-Kazakh sheath was inserted per urethra, cystoscopy was performed which showed no abnormality within the bladder. Of note patient had an obstructive bilateral lateral lobes. Next attention was carried to the Urolift implants. A total of 6 implants were used, 3 implants were placed on the right and 3 implants were placed on the left. The implants were placed proximal to the veru, and distal to the bladder neck, there was no evidence of perforation into the bladder neck. The patient had wide open anterior Sherry at the conclusion of the case. The bladder was emptied and of the case. Patient tolerated procedure well was taken to recovery in stable condition
[2021-10-17 10:14] VITALS: BP 155/58; PULSE 56
== END 2021-10-17 10:45 | disposition home or self-care (01) ==
LOC: OR 07:12
PROVIDERS: ATTEND Urology
DX: N40.1 Benign prostatic hyperplasia with lower urinary tract symptoms (principal); N13.8 Other obstructive and reflux uropathy; E11.9 Type 2 diabetes mellitus without complications; E78.5 Hyperlipidemia, unspecified; I25.10 Atherosclerotic heart disease of native coronary artery without angina pectoris; I10 Essential (primary) hypertension; G47.30 Sleep apnea, unspecified; M19.032 Primary osteoarthritis, left wrist; M54.9 Dorsalgia, unspecified; Z85.828 Personal history of other malignant neoplasm of skin; Z85.51 Personal history of malignant neoplasm of bladder; Z87.891 Personal history of nicotine dependence; Z79.84 Long term (current) use of oral hypoglycemic drugs; Z79.82 Long term (current) use of aspirin; Z79.890 Hormone replacement therapy; Z79.899 Other long term (current) drug therapy; Z79.2 Long term (current) use of antibiotics; Z79.4 Long term (current) use of insulin
CPT/HCPCS: C9739; C9740

== ENCOUNTER → 2022-09-05 | Outpatient (CLI) | payer MEDICARE ==
--- NOTE | 2022-09-05 16:15 | US ---
EXAMINATION TYPE: US liver DATE OF EXAM: 09/05/2022 COMPARISON: CT 09/21/2021 CLINICAL INDICATION: Male, 76 years old with history of R94.5 ABN LIVER TESTS; elevated liver enzymes TECHNIQUE: Multiple sonographic images of the right upper quadrant are obtained. FINDINGS: EXAM MEASUREMENTS: Liver Length: 13.9 cm Gallbladder: Surgically absent CBD: 1.2 cm Right Kidney: 11.4 x 7.1 x 4.2 cm Aorta: 4.8 x 4.6 cm mid/distal LODE MINER NOTES: Pancreas: Only a small portion of the pancreatic neck is seen. The majority is obscured by bowel gas shadowing. Liver: Slightly heterogeneous appearance may be on a technical basis. No focal lesion is seen. Gallbladder: Surgically absent Evidence for sonographic Esqueda's sign: No CBD: Dilated at 1.2 cm. Right Kidney: No hydronephrosis or masses seen Direct Service Provider notes: AAA seen 4.8 x 4.6 cm; no change since previous exam (5.0 x 4.6 cm on 09/21/2021) IMPRESSION: 1. 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 2. Mildly dilated bile duct at 1.2 cm may be chronic for the patient especially after cholecystectomy . Correlate with alkaline phosphatase and bilirubin levels.
== END | disposition home or self-care (01) ==
LOC: RADUSWWP 08:53
PROVIDERS: ATTEND Internal Medicine Hematology & Oncology
DX: I71.43 Infrarenal abdominal aortic aneurysm, without rupture (principal); K83.8 Other specified diseases of biliary tract; R94.5 Abnormal results of liver function studies; Z90.49 Acquired absence of other specified parts of digestive tract
CPT/HCPCS: 76705

== ENCOUNTER → 2023-06-26 | Outpatient (CLI) | payer MEDICARE ==
[2023-06-26 16:10] LABS: ALT 19 U/L (10-49); AST 18 U/L (14-35); Albumin/Globulin Ratio 1.25 Ratio (1.60-3.17); Alkaline Phosphatase 82 U/L (41-126); BUN/Creat Ratio 16.42 Ratio (12.00-20.00); Blood Urea Nitrogen 31.2 mg/dL (9.0-27.0); Calcium 8.7 mg/dL (8.7-10.3); Carbon Dioxide 23.4 mmol/L (21.6-31.8); Chloride 105 mmol/L (96-109); Chol/HDL Ratio 4.82 Ratio; Globulin 2.4 g/dL (1.6-3.3); Glucose 336 mg/dL (70-110); LDL Cholesterol,Calculated 166.5 mg/dL (0.0-131.0); Sodium 138 mmol/L (135-145); Total Bilirubin <0.2 mg/dL (0.3-1.2); Total Protein 5.4 g/dL (6.2-8.2)
[2023-06-26 18:03] LABS: Urine Creatinine 46.3 mg/dL (39.0-259.0)
[2023-06-26 18:25] LABS: Microalbumin Creatinine Ratio >9503 mg/g Cr (0-30)
== END | disposition home or self-care (01) ==
LOC: LABWHC1 08:45
PROVIDERS: ATTEND Internal Medicine Endocrinology, Diabetes & Metabolism
DX: E11.65 Type 2 diabetes mellitus with hyperglycemia (principal)
CPT/HCPCS: 36415; 80053; 80061; 82043; 82570; 83036; 84443

== ENCOUNTER 2023-08-03 15:36 | Emergency (ER) | payer MEDICARE ==
[2023-08-03 16:03] VITALS: RESP 18; TEMP 97.6
--- NOTE | 2023-08-03 16:49 | ED ---
Extremity Problem HPI - General Chief complaint: Extremity Problem,Nontraumatic Stated complaint: L Leg Wound Drainage-sent by Time Seen by Provider: 08/03/23 16:11 Source: patient, RN notes reviewed, old records reviewed Mode of arrival: ambulatory Limitations: no limitations - History of Present Illness Initial comments: This is a 77-year-old male to the ER today. He presents today for evaluation regards to left lower extremity nonhealing venous stasis ulcers. History of leg edema leg swelling variceal veins. Patient symptoms are persistent here in the emergency department despite outpatient treatment. Patient was sent by his appointment manager for evaluation. He has no fevers swelling is improving in the last few days with significant supportive care. No pain MD Complaint: extremity pain, extremity swelling -: week(s) Location: left, lower extremity History of Same: Yes -: Yes myalgia Radiation: none Severity scale (1-10): 4 Quality: aching Consistency: intermittent Improves with: nothing Worsens with: nothing Associated Symptoms: denies other symptoms - Related Data Home Medications Medication Instructions Recorded Confirmed C,E,Zinc,Copper 11/Hrvgp6t/Lut 1 cap PO DAILY 02/16/20 10/17/21 [Ocuvite Adult 50 Plus Softgel] Cholecalciferol [Vitamin D3 (25 1,000 unit PO DAILY 02/16/20 10/17/21 Mcg = 1000 Iu)] Cinnamon Bark [Cinnamon] 500 mg PO DAILY 02/16/20 10/17/21 Ezetimibe [Zetia] 10 mg PO DAILY 02/16/20 10/17/21 Garlic 1 tab PO DAILY 02/16/20 10/17/21 Ginseng 100 mg PO DAILY 02/16/20 10/17/21 Terazosin [Hytrin] 5 mg PO HS 02/16/20 10/17/21 Ubidecarenone [Co Q-10] 100 mg PO DAILY 02/16/20 10/17/21 Vitamin B Complex 1 tab PO DAILY 02/16/20 10/17/21 carvediloL [Coreg] 12.5 mg PO BID 02/16/20 10/17/21 Aspirin 325 mg PO DIRECTED 02/19/20 10/17/21 Carboxymethylcellulose Sodium 1 drop BOTH EYES QID PRN 02/19/20 10/17/21 [Refresh Tears] Folic Acid 0.8 mg PO BID 02/19/20 10/17/21 Niacin [Slo-Niacin] 1,000 mg PO BID 02/19/20 10/17/21 Nitroglycerin Sl Tabs [Nitrostat] 0.4 mg SUBLINGUAL Q5M PRN 02/19/20 10/17/21 Simvastatin [Zocor] 40 mg PO HS 02/19/20 10/17/21 ramipriL [Ramipril] 10 mg PO BID 02/19/20 10/17/21 Insulin Glargine [Lantus Vial] 30 unit SQ BID 10/14/21 10/17/21 Insulin Lispro [humaLOG Kwikpen] 0 unit SQ DIRECTED 10/14/21 10/17/21 metFORMIN HCL 1,000 mg PO BID 10/14/21 10/17/21 Previous Rx's Medication Instructions Recorded Ciprofloxacin HCl [Cipro] 250 mg PO Q12HR #6 tablet 10/17/21 Phenazopyridine HCl [Pyridium] 100 mg PO TID #10 tab 10/17/21 Amoxic-Pot Clav 875-125Mg 1 tab PO Q12HR #14 tablet 08/03/23 [Augmentin 875-125] Sulfamethox-Tmp 800-160Mg [Bactrim 1 tab PO Q12HR #14 tab 08/03/23 DS 800-160 mg] Allergies Allergy/AdvReac Type Severity Reaction Status Date / Time No Known Allergies Allergy Verified 08/03/23 16:03 Review of Systems ROS Statement: Those systems with pertinent positive or pertinent negative responses have been documented in the HPI. ROS Other: All systems not noted in ROS Statement are negative. Past Medical History Past Medical History: Cancer Additional Past Medical History / Comment(s): Bladder CA History of Any Multi-Drug Resistant Organisms: None Reported Past Surgical History: Cholecystectomy, Coronary Bypass/CABG Additional Past Surgical History / Comment(s): TURPT Past Anesthesia/Blood Transfusion Reactions: No Reported Reaction Additional Past Anesthesia/Blood Transfusion Reaction / Comment(s): no issues with blood transfusion Past Psychological History: No Psychological Hx Reported Smoking Status: Former smoker - Past Family History Father Family Medical History: Congestive Heart Failure (CHF) Mother Family Medical History: Congestive Heart Failure (CHF) General Exam Limitations: no limitations General appearance: alert, in no apparent distress Head exam: Present: atraumatic, normocephalic, normal inspection Eye exam: Present: normal appearance, PERRL, EOMI. Absent: scleral icterus, conjunctival injection, periorbital swelling ENT exam: Present: normal exam, mucous membranes moist Neck exam: Present: normal inspection. Absent: tenderness, meningismus, lymphadenopathy Respiratory exam: Present: normal lung sounds bilaterally. Absent: respiratory distress, wheezes, rales, rhonchi, stridor Cardiovascular Exam: Present: regular rate, normal rhythm, normal heart sounds. Absent: systolic murmur, diastolic murmur, rubs, gallop, clicks GI/Abdominal exam: Present: soft, normal bowel sounds. Absent: distended, tenderness, guarding, rebound, rigid Extremities exam: Present: normal inspection, full ROM, normal capillary refill. Absent: tenderness, pedal edema, joint swelling, calf tenderness Back exam: Present: normal inspection Neurological exam: Present: alert, oriented X3, CN II-XII intact Psychiatric exam: Present: normal affect, normal mood Skin exam: Present: warm, dry, intact, normal color. Absent: rash Course Vital Signs 08/03/23 08/03/23 16:00 17:25 Temperature 97.6 F Pulse Rate 75 64 Respiratory 18 18 Rate Blood Pressure 155/81 187/99 O2 Sat by Pulse 99 99 Oximetry - Reevaluation(s) Reevaluation #1: 08/03/23 18:21 Medical record is reviewed Reevaluation #2: 08/03/23 18:21 Patient symptoms are unchanged Reevaluation #3: 08/03/23 18:21 Patient informed of results and questions answered Reevaluation #4: Was pt. sent in by a medical professional or institution (, PA, SEISMIC PROSPECTING OBSERVER, urgent care, hospital, or fci...) When possible be specific @ -no Did you speak to anyone other than the patient for history (EMS, parent, family, police, friend...)? What history was obtained from this source @ -no Did you review nursing and triage notes (agree or disagree)? Why? @ -agree Are old charts reviewed (outside hosp., previous admission, EMS record, old EKG, old radiological studies, urgent care reports/EKG's, fci records)? Report findings @ -yes Differential Diagnosis (chest pain, altered mental status, abdominal pain women, abdominal pain men, vaginal bleeding, weakness, fever, dyspnea, syncope, headache, dizziness, GI bleed, back pain, seizure, CVA, palpatations, mental health, musculoskeletal)? @ -prior EKG interpreted by me (3pts min.). @ -no X-rays interpreted by me (1pt min.). @ -no CT interpreted by me (1pt min.). @ -no U/S interpreted by me (1pt. min.). @ -no What testing was considered but not performed or refused? (CT, X-rays, U/S, labs)? Why? @ -none What meds were considered but not given or refused? Why? @ -none Did you discuss the management of the patient with other professionals (professionals i.e. , PA, SEISMIC PROSPECTING OBSERVER, lab, RT, psych nurse, psych social worker, ecologist technician, teacher, parole or probation officer, case packer and sealer)? Give summary @ -no Was smoking cessation discussed for >3mins.? @ -no Was critical care preformed (if so, how long)? @ -no Were there social determinants of health that impacted care today? How? (Homelessness, low income, unemployed, alcoholism, drug addiction, transportation, low edu. Level, literacy, decrease access to med. care, halfway, rehab)? @ -none Was there de-escalation of care discussed even if they declined (Discuss DNR or withdrawal of care, Hospice)? DNR status @ -no What co-morbidities impacted this encounter? (DM, HTN, Smoking, COPD, CAD, Cancer, CVA, ARF, Chemo, Hep., AIDS, mental health diagnosis, sleep apnea, morbid obesity)? @ -none Was patient admitted / discharged? Hospital course, mention meds given and r oute, prescriptions, significant lab abnormalities, going to OR and other pertinent info. @ - 77 male to ER for evaluation of leg pain and swelling r left lower extremity edema with venous stasis ulcers, patient replaced on antibiotics and can be discharged home to continue elevation Discharge Undiagnosed new problem with uncertain prognosis? @ -no Drug Therapy requiring intensive monitoring for toxicity (Heparin, Nitro, Insulin, Cardizem)? @ -no Were any procedures done? @ -no Diagnosis/symptom? @ -Leg edema and swelling Acute, or Chronic, or Acute on Chronic? @ -Acute Uncomplicated (without systemic symptoms) or Complicated (systemic symptoms)? @ -Complicated Side effects of treatment? @ -no Exacerbation, Progression, or Severe Exacerbation? @ -exacerbation Poses a threat to life or bodily function? How? (Chest pain, [place], [place], pneumonia, PE, COPD, DKA, ARF, appy, cholecystitis, CVA, Diverticulitis, Homicidal, Suicidal, threat to staff... and all critical care pts) @ -yes extremes of age Medical Decision Making - Medical Decision Making 77 male to ER for evaluation of leg pain and swelling r left lower extremity edema with venous stasis ulcers, patient replaced on antibiotics and can be discharged home to continue elevation Disposition Clinical Impression: Ulcer of left lower leg, Cellulitis of left leg, Bilateral leg edema Disposition: HOME SELF-CARE Condition: Good Instructions (If sedation given, give patient instructions): Cellulitis (ED) Prescriptions: Amoxic-Pot Clav 875-125Mg [Augmentin 875-125] 1 tab PO Q12HR #14 tablet Sulfamethox-Tmp 800-160Mg [Bactrim DS 800-160 mg] 1 tab PO Q12HR #14 tab Is patient prescribed a controlled substance at d/c from ED?: No Referrals: Pranav Hankins DO [Primary Care Provider] - 1-2 days Time of Disposition: 16:45
[2023-08-03] MEDS: FUROSEMIDE 20 MG TAB PO STA (17:13)
[2023-08-03] MEDS: SULFAMETHOX-TMP 800-160MG 1 EACH TAB PO STA (17:15)
[2023-08-03] MEDS: AMOXIC-POT CLAV 875-125MG 1 EACH TAB PO STA (17:15)
[2023-08-03] MEDS: AMOXIC-POT CLAV 875MG STARTER PACK 2 TAB BTL PO STA (17:16)
[2023-08-03] MEDS: SULFAMETH-TMP DS STARTER PACK 2 TAB BTL PO STA (17:16)
[2023-08-03 17:28] VITALS: BP 187/99; PULSE 64
== END 2023-08-03 18:00 | disposition home or self-care (01) ==
LOC: EC 15:36
DX: L03.116 Cellulitis of left lower limb (principal); L97.929 Non-pressure chronic ulcer of unspecified part of left lower leg with unspecified severity; Z87.891 Personal history of nicotine dependence
CPT/HCPCS: 99283